=== PATIENT | female | born 1970 | race Caucasian/White ===

== ENCOUNTER 2016-04-29 16:44 | Emergency (ER) | payer OTHER ==
[2016-04-29 17:07] VITALS: BP 128/68; PULSE 85; RESP 18; TEMP 98.3
--- NOTE | 2016-04-29 17:22 | ED ---
General Adult HPI - General Chief complaint: Extremity Problem,Nontraumatic Stated complaint: Left Hand/Wrist Pain Time Seen by Provider: 04/29/16 17:10 Source: patient, RN notes reviewed Mode of arrival: ambulatory Limitations: no limitations - History of Present Illness Initial comments: Patient 45-year-old female who presents emergency room today with a chief complaint increased pain to the left wrist. Does admit to a history of carpal tunnel. 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 States she's been working for the past 7 weeks straight. States that she's had increased pain to the left wrist area was numbness tingling sensation. States consistent with her carpal tunnel that she's had in the past. States she's not using any medications at home. States she's had come the emergency room once in the past and was given a steroid Dosepak which didn't give her a lot of relief. Patient denies any complaints or associated symptoms. Patient denies any recent fever, chills, shortness of breath, chest pain, back pain, abdominal pain, nausea or vomiting, dysuria or hematuria, constipation or diarrhea, headaches or visual changes, or any other complaints. - Related Data Previous Rx's Medication Instructions Recorded Ibuprofen [Motrin] 600 mg PO Q6HR PRN #40 day 04/29/16 methylPREDNISolone Dose Pack 4 mg PO DIRECTED #21 package 04/29/16 [Medrol Dose Pack] Allergies Allergy/AdvReac Type Severity Reaction Status Date / Time ibuprofen [From Motrin] Allergy seizure Verified 04/29/16 17:06 aspirin AdvReac liver Verified 04/29/16 17:06 failure Review of Systems ROS Statement: Those systems with pertinent positive or pertinent negative responses have been documented in the HPI. ROS Other: All systems not noted in ROS Statement are negative. Past Medical History Past Medical History: Rheumatoid Arthritis (RA) Additional Past Medical History / Comment(s): carpel tunnel History of Any Multi-Drug Resistant Organisms: None Reported Past Surgical History: Section, Cholecystectomy, Orthopedic Surgery Past Psychological History: No Psychological Hx Reported Smoking Status: Never smoker Past Alcohol Use History: None Reported Past Drug Use History: None Reported General Exam - General Exam Comments Initial Comments: General: The patient is awake and alert, in no distress, and does not appear acutely ill. Neck: The neck is supple, there is no tenderness or JVD. Cardiovascular: There is a regular rate and rhythm. No murmur, rub or gallop is appreciated. Respiratory: Lungs are clear to auscultation, respirations are non-labored, breath sounds are equal. No wheezes, stridor, rales, or rhonchi. Musculoskeletal: Normal appearance left hand. Shows good range of motion. Does have pain with flexion and extension at the left wrist. Sensation intact pulses equal bilaterally 2+. Neurological: A&O x 3. CN II-XII intact, There are no obvious motor or sensory deficits. Coordination appears grossly intact. Speech is normal. Skin: Skin is warm and dry and no rashes or lesions are noted. Psychiatric: Normal mood and affect. Limitations: no limitations Course Vital Signs 04/29/16 17:04 Temperature 98.3 F Pulse Rate 85 Respiratory 18 Rate Blood Pressure 128/68 O2 Sat by Pulse 99 Oximetry Medical Decision Making - Medical Decision Making Patient advised follow-up with orthopedics. Will be given anti-inflammatories and steroid Dosepak. Disposition Clinical Impression: Carpal tunnel syndrome Disposition: HOME SELF-CARE Condition: Good Instructions: Paresthesia (ED) Additional Instructions: Please use medication as discussed. Please follow-up with orthopedics as discussed. Please return to emergency room if the symptoms increase or worsen or for any other concerns. Prescriptions: Ibuprofen [Motrin] 600 mg PO Q6HR PRN #40 day PRN Reason: Pain methylPREDNISolone Dose Pack [Medrol Dose Pack] 4 mg PO DIRECTED #21 package Referrals: None,Stated [Primary Care Provider] - 1-2 days Yamil Ramírez MD [STAFF PHYSICIAN] - 1-2 days Time of Disposition: 17:21
[2016-04-29] MEDS ORDERED: IBUPROFEN 600 MG STARTER PACK 4 TAB BTL PO STA (17:23)
== END 2016-04-29 17:45 | disposition home or self-care (01) ==
LOC: EC 16:44
DX: G56.02 Carpal tunnel syndrome, left upper limb (principal); M06.9 Rheumatoid arthritis, unspecified; Z88.6 Allergy status to analgesic agent; Z98.890 Other specified postprocedural states
CPT/HCPCS: 99283

== ENCOUNTER 2016-07-21 11:38 | Emergency (ER) | payer OTHER ==
[2016-07-21 11:57] VITALS: TEMP 98
--- NOTE | 2016-07-21 12:55 | XR ---
EXAMINATION TYPE: XR knee complete bilateral DATE OF EXAM: 07/21/2016 12:31 PM COMPARISON: 07/23/2013 HISTORY: 45-year-old female with lateral knee pain, history of prior surgery on both sides. TECHNIQUE: 3 views each knee FINDINGS: Supine imaging is limited for accurate assessment of joint space narrowing. This could be better perf ormed with weightbearing views. 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 An ovoid bone island is noted within the right femoral condyle. Extensor mechanisms are intact. Smal l knee joint effusion on the left is nonspecific. No acute fracture or dislocation. IMPRESSION: Left greater than right tricompartmental degenerative spurring. Assessment for joint space narrowing could be better performed with weightbearing views. A small left knee joint effusion is nonspecific a nd could be reactive. No acute osseous abnormality seen.
--- NOTE | 2016-07-21 13:25 | ED ---
General Adult HPI - General Chief complaint: Extremity Problem,Nontraumatic Stated complaint: PAIN BOTH LEGS, X 1 WEEK, SWELLING, TENDER KNEES Time Seen by Provider: 07/21/16 12:01 Source: patient, RN notes reviewed, old records reviewed Mode of arrival: wheelchair Limitations: no limitations - History of Present Illness Initial comments: This is a 45-year-old female to the ER today for evaluation of bilateral lower extremity edema. Patient has bilateral lower extremity pain and edema, anterior Edema and pain to the back of aspect of both knees. Patient has no prior history of similar complaints. No shortness of breath no chest pain. No trauma to either area. Patient has had left knee replacement left knee surgery. No again no recent travel history. No chest pain or shortness of breath. - Related Data Home Medications Medication Instructions Recorded Confirmed Ibuprofen/Diphenhydramine HCl 2 cap PO HS 07/21/16 07/21/16 [Advil Pm Liqui-Gels] Allergies Allergy/AdvReac Type Severity Reaction Status Date / Time aspirin AdvReac liver Verified 04/29/16 17:06 failure Review of Systems ROS Statement: Those systems with pertinent positive or pertinent negative responses have been documented in the HPI. ROS Other: All systems not noted in ROS Statement are negative. Past Medical History Past Medical History: Rheumatoid Arthritis (RA) Additional Past Medical History / Comment(s): carpel tunnel History of Any Multi-Drug Resistant Organisms: None Reported Past Surgical History: Section, Cholecystectomy, Orthopedic Surgery Past Psychological History: No Psychological Hx Reported Smoking Status: Never smoker Past Alcohol Use History: None Reported Past Drug Use History: None Reported General Exam Limitations: no limitations General appearance: alert, in no apparent distress Head exam: Present: atraumatic, normocephalic, normal inspection Eye exam: Present: normal appearance, PERRL, EOMI. Absent: scleral icterus, conjunctival injection, periorbital swelling ENT exam: Present: normal exam, mucous membranes moist Neck exam: Present: normal inspection. Absent: tenderness, meningismus, lymphadenopathy Respiratory exam: Present: normal lung sounds bilaterally. Absent: respiratory distress, wheezes, rales, rhonchi, stridor Cardiovascular Exam: Present: regular rate, normal rhythm, normal heart sounds. Absent: systolic murmur, diastolic murmur, rubs, gallop, clicks GI/Abdominal exam: Present: soft, normal bowel sounds. Absent: distended, tenderness, guarding, rebound, rigid Extremities exam: Present: normal inspection, full ROM, normal capillary refill. Absent: tenderness, pedal edema, joint swelling, calf tenderness Back exam: Present: normal inspection Neurological exam: Present: alert, oriented X3, CN II-XII intact Psychiatric exam: Present: normal affect, normal mood Skin exam: Present: warm, dry, intact, normal color. Absent: rash Course Vital Signs 07/21/16 11:53 Temperature 98 F Pulse Rate 74 Respiratory 20 Rate Blood Pressure 136/79 O2 Sat by Pulse 98 Oximetry - Reevaluation(s) Reevaluation #1: 07/21/16 14:08 Patient is in no acute distress, remains without shortness of breath or chest pain Medical Decision Making - Medical Decision Making 45 female here for evaluation of knee pain and leg pain. Patient has positive Saravia's cyst on the left. Patient will be given instructions and discharged home - Radiology Data Radiology results: report reviewed, image reviewed Disposition Clinical Impression: Saravia's cyst of knee Disposition: HOME SELF-CARE Condition: Good Referrals: None,Stated [Primary Care Provider] - 1-2 days
--- NOTE | 2016-07-21 13:34 | US ---
EXAMINATION TYPE: US venous doppler duplex LE BI DATE OF EXAM: 07/21/2016 1:13 PM COMPARISON: NONE CLINICAL HISTORY: Pain. Knee pain bilateral SIDE PERFORMED: Bilateral TECHNIQUE: The lower extremity deep venous system is examined utilizing real time linear array sonog chito with graded compression, doppler sonography and color-flow sonography. VESSELS IMAGED: External Iliac Vein (EIV) Common Femoral Vein Deep Femoral Vein Greater Saphenous Vein * Femoral Vein Popliteal Vein Small Saphenous Vein * Proximal Calf Veins (* superficial vessels) Right Leg: Appears negative for DVT Left Leg: Appears negative for DVT, 4.6cm fluid collection with posterior fossa anterior to vessels. IMPRESSION: 1. Bilateral lower extremity negative for deep venous thrombosis. 2. Popliteal fossa cyst on the left.
[2016-07-21 14:16] VITALS: BP 130/62; PULSE 80; RESP 16
== END 2016-07-21 14:15 | disposition home or self-care (01) ==
LOC: EC 11:38
DX: M71.22 Synovial cyst of popliteal space [Baker], left knee (principal); M25.561 Pain in right knee; R60.0 Localized edema; Z79.1 Long term (current) use of non-steroidal anti-inflammatories (NSAID); Z88.6 Allergy status to analgesic agent; Z96.652 Presence of left artificial knee joint
CPT/HCPCS: 93970; 99284

== ENCOUNTER 2019-07-25 12:58 | Emergency (ER) | payer OTHER ==
[2019-07-25 13:10] VITALS: TEMP 98.2
[2019-07-25] MEDS ORDERED: SODIUM CHLORIDE 0.9% 1,000 ML IV STA (13:30)
--- NOTE | 2019-07-25 13:57 | ED ---
General Adult HPI - General Chief complaint: Chest Pain Stated complaint: irregular labs/tests Time Seen by Provider: 07/25/19 13:17 Source: patient, RN notes reviewed, old records reviewed Mode of arrival: ambulatory Limitations: no limitations - History of Present Illness Initial comments: 48-year-old female patient past history of rheumatoid arthritis presents ED for chief complaint approximately 2 weeks of chest pain. Patient reports that she previously had Left lower posterior chest region. She reports that she called her primary care provider was initiated on doxycycline for possible pneumonia and that has resolved. Patient does report now however she has been having substernal chest pain for the last week. Reports that it is pressure. Denies any shortness of breath. Pt reports mild coughing. Denies any fevers. Denies any prior cardiac history. 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 Pt was previously tested for COVID by PCP 3 weeks ago and was negative. she declines this test today. Denies any other complaints. Systemic: Pt denies fatigue, fever/chills, rash. Pt denies weakness, night s weats, weight loss. Neuro: Pt denies headache, visual disturbances, syncope or pre-syncope. HEENT: Pt denies ocular discharge or irritation, otalgia, rhinorrhea, pharyngitis or notable lymphadenopathy. Cardiopulmonary: Pt denies SOB, heart palpitations, dyspnea on exertion. Abdominal/GI: Pt denies abdominal pain, n/v/d. : Pt denies dysuria, burning w/ urination, frequency/urgency. Denies new onset urinary or bowel incontinence. MSK: Pt denies myalgia, loss of strength or function in extremities. Neuro: Pt denies new onset weakness, paresthesias. - Related Data Home Medications Medication Instructions Recorded Confirmed Omeprazole [PriLOSEC] 20 mg PO AC-SUPPER 07/25/19 07/25/19 amLODIPine [Norvasc] 10 mg PO DAILY 07/25/19 07/25/19 Allergies Allergy/AdvReac Type Severity Reaction Status Date / Time aspirin AdvReac liver Verified 07/25/19 14:10 failure ibuprofen [From Motrin] AdvReac Nausea Verified 07/25/19 14:10 Review of Systems ROS Statement: Those systems with pertinent positive or pertinent negative responses have been documented in the HPI. ROS Other: All systems not noted in ROS Statement are negative. Past Medical History Past Medical History: Rheumatoid Arthritis (RA) Additional Past Medical History / Comment(s): carpel tunnel History of Any Multi-Drug Resistant Organisms: None Reported Past Surgical History: Section, Cholecystectomy, Orthopedic Surgery Past Psychological History: No Psychological Hx Reported Smoking Status: Never smoker Past Alcohol Use History: None Reported Past Drug Use History: None Reported General Exam - General Exam Comments Initial Comments: Constitutional: NAD, AOX3, Pt has pleasant affect. HEENT: NC/AT, trachea midline, neck supple, no lymphadenopathy. Posterior pharyn x non erythematous, without exudates. External ears appear normal, without discharge. Mucous membranes moist. Eyes PERRLA, EOM intact. There is no scleral icterus. No pallor noted. Cardiopulmonary: RRR, no murmurs, rubs or gallops, no JVD noted. Lungs CTAB in anterior and posterior langston. No peripheral edema. Abdominal exam: Abdomen soft and non-distended. Abdomen non-tender to palpation in all 4 quadrants. Bowel sounds active in LLQ. No hepatosplenomegaly. No ecchymosis Neuro: CN II-XII grossly intact. No nuchal rigidity. No raccon eyes, no sargent sign, no hemotympanum. No cervical spinal tenderness. MSK: No posterior calf tenderness bilaterally, homans sign negative bilaterally. Posterior tibialis and radial pulse +2 bilaterally. Sensation intact in upper and lower extremities. Full active ROM in upper and lower extremities, 5/5 stregnth. Limitations: no limitations Course Vital Signs 07/25/19 07/25/19 07/25/19 13:06 14:20 14:30 Temperature 98.2 F Pulse Rate 89 89 89 Respiratory 18 14 15 Rate Blood Pressure 138/84 110/72 110/72 O2 Sat by Pulse 99 97 99 Oximetry 07/25/19 07/25/19 07/25/19 14:46 14:50 15:20 Temperature Pulse Rate 90 97 101 H Respiratory 18 18 17 Rate Blood Pressure 137/88 137/88 123/91 O2 Sat by Pulse 99 96 96 Oximetry 07/25/19 07/25/19 07/25/19 15:30 15:40 15:50 Temperature Pulse Rate 102 H 95 Respiratory 16 16 Rate Blood Pressure 123/91 146/99 146/99 O2 Sat by Pulse 99 97 Oximetry 0407/25/19 07/25/19 16:00 16:10 16:20 Temperature Pulse Rate 92 Respiratory 17 16 Rate Blood Pressure 146/99 137/99 137/99 O2 Sat by Pulse 100 Oximetry Medical Decision Making - Medical Decision Making 48-year-old female patient past history of rheumatoid arthritis presents ED for chief complaint approximately 2 weeks of chest pain. Patient reports that she previously had Left lower posterior chest region. She reports that she called her primary care provider was initiated on doxycycline for possible pneumonia and that has resolved. Patient does report now however she has been having substernal chest pain for the last week. Reports that it is pressure. Denies any shortness of breath. Pt reports mild coughing. Denies any fevers. Denies any prior cardiac history. 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 Pt was previously tested for COVID by PCP 3 weeks ago and was negative. she declines this test today. Denies any other complaints. Patient vital signs are stable, afebrile. Physical exam didn't display acute pathology. Laboratory investigations are obtained, this displayed a mildly elevated d-dimer. Troponin negative. EKG is nonischemic. CTA was obtained. This displayed no evidence of pulmonary embolism. Mild diffuse bronchial wall thickening for possible bronchitis. Small hiatal hernia. Patient will be discharged for follow-up with primary care provider tomorrow and return to ER if condition worsens. Case discussed with Dr. Romeo. - Lab Data Result diagrams: 07/25/19 14:00 07/25/19 14:00 Lab Results 07/25/19 07/25/19 07/25/19 Range/Units 14:00 14:00 14:00 WBC 8.0 (3.8-10.6) k/uL RBC 4.79 (3.80-5.40) m/uL Hgb 15.2 (11.4-16.0) gm/dL Hct 45.4 (34.0-46.0) % MCV 94.8 (80.0-100.0) fL MCH 31.7 (25.0-35.0) pg MCHC 33.5 (31.0-37.0) g/dL RDW 13.0 (11.5-15.5) % Plt Count 295 (150-450) k/uL Neutrophils % 64 % Lymphocytes % 27 % Monocytes % 5 % Eosinophils % 1 % Basophils % 0 % Neutrophils # 5.1 (1.3-7.7) k/uL Lymphocytes # 2.2 (1.0-4.8) k/uL Monocytes # 0.4 (0-1.0) k/uL Eosinophils # 0.1 (0-0.7) k/uL Basophils # 0.0 (0-0.2) k/uL PT 9.3 (9.0-12.0) sec INR 0.9 (<1.2) APTT 23.3 (22.0-30.0) sec D-Dimer 0.77 H (<0.60) mg/L FEU Sodium 138 (137-145) mmol/L Potassium 4.2 (3.5-5.1) mmol/L Chloride 103 (98-107) mmol/L Carbon Dioxide 27 (22-30) mmol/L Anion Gap 8 mmol/L BUN 15 (7-17) mg/dL Creatinine 0.69 (0.52-1.04) mg/dL Est GFR (CKD-EPI)AfAm >90 (>60 ml/min/1.73 sqM) Est GFR (CKD-EPI)NonAf >90 (>60 ml/min/1.73 sqM) Glucose 90 (74-99) mg/dL Calcium 9.4 (8.4-10.2) mg/dL Magnesium 2.2 (1.6-2.3) mg/dL Total Bilirubin 1.4 H (0.2-1.3) mg/dL AST 18 (14-36) U/L ALT 15 (4-34) U/L Alkaline Phosphatase 101 (38-126) U/L Troponin I (0.000-0.034) ng/mL Total Protein 7.7 (6.3-8.2) g/dL Albumin 4.4 (3.5-5.0) g/dL Amylase 41 (30-110) U/L 07/25/19 Range/Units 14:00 WBC (3.8-10.6) k/uL RBC (3.80-5.40) m/uL Hgb (11.4-16.0) gm/dL Hct (34.0-46.0) % MCV (80.0-100.0) fL MCH (25.0-35.0) pg MCHC (31.0-37.0) g/dL RDW (11.5-15.5) % Plt Count (150-450) k/uL Neutrophils % % Lymphocytes % % Monocytes % % Eosinophils % % Basophils % % Neutrophils # (1.3-7.7) k/uL Lymphocytes # (1.0-4.8) k/uL Monocytes # (0-1.0) k/uL Eosinophils # (0-0.7) k/uL Basophils # (0-0.2) k/uL PT (9.0-12.0) sec INR (<1.2) APTT (22.0-30.0) sec D-Dimer (<0.60) mg/L FEU Sodium (137-145) mmol/L Potassium (3.5-5.1) mmol/L Chloride (98-107) mmol/L Carbon Dioxide (22-30) mmol/L Anion Gap mmol/L BUN (7-17) mg/dL Creatinine (0.52-1.04) mg/dL Est GFR (CKD-EPI)AfAm (>60 ml/min/1.73 sqM) Est GFR (CKD-EPI)NonAf (>60 ml/min/1.73 sqM) Glucose (74-99) mg/dL Calcium (8.4-10.2) mg/dL Magnesium (1.6-2.3) mg/dL Total Bilirubin (0.2-1.3) mg/dL AST (14-36) U/L ALT (4-34) U/L Alkaline Phosphatase (38-126) U/L Troponin I <0.012 (0.000-0.034) ng/mL Total Protein (6.3-8.2) g/dL Albumin (3.5-5.0) g/dL Amylase (30-110) U/L - EKG Data -: EKG Interpreted by Me (and Dr. romeo ) EKG Comments: Ventricular rate 92, ID interval 128, QRS 84, QT/QTC 342/422. Normal sinus rhythm, nonspecific ST-T wave abnormality. No concern for acute ischemia this time. Disposition Clinical Impression: Chest wall pain Disposition: HOME SELF-CARE Condition: Stable Instructions (If sedation given, give patient instructions): Chest Pain (ED), Costochondritis (ED) Additional Instructions: Follow-up with primary care provider tomorrow. Return to ER if condition worsens in any way. Is patient prescribed a controlled substance at d/c from ED?: No Referrals: Jeremy Corral MD [Primary Care Provider] - 1-2 days
[2019-07-25 14:25] LABS: Basophils % (A) 0 %; Eosinophils # (A) 0.1 k/uL (0-0.7); Eosinophils % (A) 1 %; HCT 45.4 % (34.0-46.0); HGB 15.2 gm/dL (11.4-16.0); Lymphocytes # (A) 2.2 k/uL (1.0-4.8); Lymphocytes % (A) 27 %; MCH 31.7 pg (25.0-35.0); MCHC 33.5 g/dL (31.0-37.0); MCV 94.8 fL (80.0-100.0); Mean Platelet Volume 8.1; Monocytes # (A) 0.4 k/uL (0-1.0); Monocytes % (A) 5 %; Neutrophils # (A) 5.1 k/uL (1.3-7.7); Neutrophils % (A) 64 %; Platelet Count 295 k/uL (150-450); RBC 4.79 m/uL (3.80-5.40)
[2019-07-25 14:36] LABS: ALT 15 U/L (4-34); AST 18 U/L (14-36); African American GFR (CKD) >90 (>60 ml/min/1.73 sqM); Albumin 4.4 g/dL (3.5-5.0); Alkaline Phosphatase 101 U/L (38-126); Amylase 41 U/L (30-110); Anion Gap 8 mmol/L; Blood Urea Nitrogen 15 mg/dL (7-17); Calcium 9.4 mg/dL (8.4-10.2); Carbon Dioxide 27 mmol/L (22-30); Chloride 103 mmol/L (98-107); Glucose 90 mg/dL (74-99); Magnesium 2.2 mg/dL (1.6-2.3); Non-African American GFR(CKD) >90 (>60 ml/min/1.73 sqM); Potassium 4.2 mmol/L (3.5-5.1); Sodium 138 mmol/L (137-145); Total Bilirubin 1.4 mg/dL (0.2-1.3); Total Protein 7.7 g/dL (6.3-8.2)
--- NOTE | 2019-07-25 14:39 | XR ---
EXAMINATION TYPE: XR chest 1V portable DATE OF EXAM: 07/25/2019 Comparison: None Clinical History: 48-year-old female chest pain Findings: Heart borderline enlarged. Aorta and pulmonary vasculature within normal limits. Some strandy atelect asis in the medial right lower lung. No consolidation or pleural effusion. Impression: Borderline heart size. No definite acute process.
[2019-07-25 14:42] LABS: INR 0.9 (<1.2); Partial Thromboplastin Time 23.3 sec (22.0-30.0); Prothrombin Time 9.3 sec (9.0-12.0)
[2019-07-25 15:16] LABS: D-Dimer 0.77 mg/L FEU (<0.60)
--- NOTE | 2019-07-25 16:00 | CT ---
EXAMINATION TYPE: CT chest angio for PE DATE OF EXAM: 07/25/2019 COMPARISON: Radiograph same day HISTORY: 48-year-old female Chest pain with difficulty breathing while laying down. TECHNIQUE: Contiguous axial scanning of the chest performed with IV Contrast, patient injected with 1 00 mL of Isovue 370. Coronal/sagittal MIP reconstructions performed. CT DLP: 547.4 mGycm Automated exposure control for dose reduction was used. FINDINGS: The heart is upper limits of normal in size. Mild fluid along a high pericardial recess anterior to the aortic arch. No flattening of the interventricular septum or reflux of contrast into the hepatic veins. Bovine configuration to the aortic arch. Satisfactory opacification of the pulmonary arterial system without evidence for pulmonary embolus. No thoracic lymphadenopathy by CT size criteria. Mild diffuse bronchial wall thickening. Minimal dependent atelectasis on the right. No consolidation or pleural effusion. Small hiatal hernia. Visualized upper abdomen otherwise shows cholecystectomy clips. Bones: Mild anterior endplate spondylosis mid thoracic spine. IMPRESSION: 1. NO EVIDENCE FOR PULMONARY EMBOLUS. 2. MILD DIFFUSE BRONCHIAL WALL THICKENING. CORRELATE FOR POSSIBLE BRONCHITIS OR ASTHMA. 3. SMALL HIATAL HERNIA.
[2019-07-25 17:15] VITALS: BP 129/88; PULSE 101; RESP 18
--- NOTE | 2019-07-26 08:32 | ED ---
Medical Decision Making - Medical Decision Making Discussed case with patient's primary care physician Dr. Corral who called to see how patient was doing. She states that she believed patient was experiencing pleurisy and actually requested patient had outpatient laboratory investigations and not present to emergency department however patient had confusion with lab draw and then came to the ER. Patient's symptoms are consistent with pleurisy/costochondritis. She reported her discomfort slightly pleuritic in nature. Appears to be musculoskeletal rather than cardiac. Patient advised to use Tylenol, [id number] antitussives. And will follow up with primary care provider tomorrow and return to ER if condition worsens. - Lab Data Result diagrams: 07/25/19 14:00 07/25/19 14:00 Lab Results 07/25/19 07/25/19 07/25/19 Range/Units 14:00 14:00 14:00 WBC 8.0 (3.8-10.6) k/uL RBC 4.79 (3.80-5.40) m/uL Hgb 15.2 (11.4-16.0) gm/dL Hct 45.4 (34.0-46.0) % MCV 94.8 (80.0-100.0) fL MCH 31.7 (25.0-35.0) pg MCHC 33.5 (31.0-37.0) g/dL RDW 13.0 (11.5-15.5) % Plt Count 295 (150-450) k/uL Neutrophils % 64 % Lymphocytes % 27 % Monocytes % 5 % Eosinophils % 1 % Basophils % 0 % Neutrophils # 5.1 (1.3-7.7) k/uL Lymphocytes # 2.2 (1.0-4.8) k/uL Monocytes # 0.4 (0-1.0) k/uL Eosinophils # 0.1 (0-0.7) k/uL Basophils # 0.0 (0-0.2) k/uL PT 9.3 (9.0-12.0) sec INR 0.9 (<1.2) APTT 23.3 (22.0-30.0) sec D-Dimer 0.77 H (<0.60) mg/L FEU Sodium 138 (137-145) mmol/L Potassium 4.2 (3.5-5.1) mmol/L Chloride 103 (98-107) mmol/L Carbon Dioxide 27 (22-30) mmol/L Anion Gap 8 mmol/L BUN 15 (7-17) mg/dL Creatinine 0.69 (0.52-1.04) mg/dL Est GFR (CKD-EPI)AfAm >90 (>60 ml/min/1.73 sqM) Est GFR (CKD-EPI)NonAf >90 (>60 ml/min/1.73 sqM) Glucose 90 (74-99) mg/dL Calcium 9.4 (8.4-10.2) mg/dL Magnesium 2.2 (1.6-2.3) mg/dL Total Bilirubin 1.4 H (0.2-1.3) mg/dL AST 18 (14-36) U/L ALT 15 (4-34) U/L Alkaline Phosphatase 101 (38-126) U/L Troponin I (0.000-0.034) ng/mL Total Protein 7.7 (6.3-8.2) g/dL Albumin 4.4 (3.5-5.0) g/dL Amylase 41 (30-110) U/L 07/25/19 Range/Units 14:00 WBC (3.8-10.6) k/uL RBC (3.80-5.40) m/uL Hgb (11.4-16.0) gm/dL Hct (34.0-46.0) % MCV (80.0-100.0) fL MCH (25.0-35.0) pg MCHC (31.0-37.0) g/dL RDW (11.5-15.5) % Plt Count (150-450) k/uL Neutrophils % % Lymphocytes % % Monocytes % % Eosinophils % % Basophils % % Neutrophils # (1.3-7.7) k/uL Lymphocytes # (1.0-4.8) k/uL Monocytes # (0-1.0) k/uL Eosinophils # (0-0.7) k/uL Basophils # (0-0.2) k/uL PT (9.0-12.0) sec INR (<1.2) APTT (22.0-30.0) sec D-Dimer (<0.60) mg/L FEU Sodium (137-145) mmol/L Potassium (3.5-5.1) mmol/L Chloride (98-107) mmol/L Carbon Dioxide (22-30) mmol/L Anion Gap mmol/L BUN (7-17) mg/dL Creatinine (0.52-1.04) mg/dL Est GFR (CKD-EPI)AfAm (>60 ml/min/1.73 sqM) Est GFR (CKD-EPI)NonAf (>60 ml/min/1.73 sqM) Glucose (74-99) mg/dL Calcium (8.4-10.2) mg/dL Magnesium (1.6-2.3) mg/dL Total Bilirubin (0.2-1.3) mg/dL AST (14-36) U/L ALT (4-34) U/L Alkaline Phosphatase (38-126) U/L Troponin I <0.012 (0.000-0.034) ng/mL Total Protein (6.3-8.2) g/dL Albumin (3.5-5.0) g/dL Amylase (30-110) U/L Disposition Clinical Impression: Chest wall pain Disposition: HOME SELF-CARE Condition: Stable Instructions (If sedation given, give patient instructions): Chest Pain (ED), Costochondritis (ED) Additional Instructions: Follow-up with primary care provider tomorrow. Return to ER if condition worsens in any way. Is patient prescribed a controlled substance at d/c from ED?: No Referrals: Jeremy Corral MD [Primary Care Provider] - 1-2 days
== END 2019-07-25 17:33 | disposition home or self-care (01) ==
LOC: EC 12:58
DX: R07.89 Other chest pain (principal); K44.9 Diaphragmatic hernia without obstruction or gangrene; Z79.899 Other long term (current) drug therapy; Z88.6 Allergy status to analgesic agent
CPT/HCPCS: 36415; 93005; 85379; 80053; 82150; 83735; 84484; 85025; 85610; 85730; 71045; 71275; 99285; 96360; 96361 ×2; Q9967

== ENCOUNTER 2020-02-25 10:52 | Emergency (ER) | payer OTHER ==
[2020-02-25 11:00] VITALS: RESP 18; TEMP 98.4
[2020-02-25] MEDS ORDERED: dexAMETHasone 2 MG TAB PO STA (11:14)
--- NOTE | 2020-02-25 11:41 | ED ---
General Adult HPI - General Chief complaint: Shortness of Breath Stated complaint: MONICA Time Seen by Provider: 02/25/20 11:00 Source: patient Mode of arrival: wheelchair Limitations: no limitations - History of Present Illness Initial comments: 49-year-old female presenting today for positive Covid exposure and cough, SOB, chest discomfort. Patient states that she was exposed to Covid by her mother and daughter. She states that she's been developing cough congestion shortness of breath over the past few days. She states she is discomfort in the right side of the chest at times especially with deep inspiration. She denies hemoptysis leg swelling chest pressure nausea vomiting diarrhea or abdominal pain. Patient denies jaw or arm pain. Pt appears well on arrival, no distress--she is not hypoxic. - Related Data Home Medications Medication Instructions Recorded Confirmed Loratadine [Claritin] 10 mg PO DAILY 02/25/20 02/25/20 Omeprazole 40 mg PO DAILY 02/25/20 02/25/20 hydroCHLOROthiazide [Hydrodiuril] 12.5 mg PO DAILY 02/25/20 02/25/20 Previous Rx's Medication Instructions Recorded Azithromycin [Zithromax Z-pack (6 0 mg PO DIRECTED #6 tab 02/25/20 tabs)] predniSONE 50 mg PO DAILY 4 Days #4 tab 02/25/20 Allergies Allergy/AdvReac Type Severity Reaction Status Date / Time aspirin AdvReac liver Verified 02/25/20 11:19 failure ibuprofen [From Motrin] AdvReac Nausea Verified 02/25/20 11:19 Review of Systems ROS Statement: Those systems with pertinent positive or pertinent negative responses have been documented in the HPI. ROS Other: All systems not noted in ROS Statement are negative. Past Medical History Past Medical History: Rheumatoid Arthritis (RA) Additional Past Medical History / Comment(s): carpel tunnel History of Any Multi-Drug Resistant Organisms: None Reported Past Surgical History: Section, Cholecystectomy, Orthopedic Surgery Past Psychological History: No Psychological Hx Reported Smoking Status: Never smoker Past Alcohol Use History: None Reported Past Drug Use History: None Reported General Exam - General Exam Comments Initial Comments: General: The patient is awake and alert, in no distress, and does not appear acutely ill. Eye: Pupils are equal, round and reactive to light, extra-ocular movements are intact. No nystagmus. There is normal conjunctiva bilaterally. No signs of icterus. Ears, nose, mouth and throat: There are moist mucous membranes and no oral lesions. Neck: The neck is supple, there is no tenderness or JVD. Cardiovascular: There is a regular rate and rhythm. No murmur, rub or gallop is appreciated. Respiratory: Lungs are clear to auscultation, respirations are non-labored, breath sounds are equal. No wheezes, stridor, rales, or rhonchi. Gastrointestinal: Soft, non-distended, non-tender abdomen without masses or organomegaly noted. There is no rebound or guarding present. Musculoskeletal: Normal ROM, no tenderness. Strength 5/5. Sensation intact. Pulses equal bilaterally 2+. Neurological: A&O x 3. CN II-XII intact, There are no obvious motor or sensory deficits. Coordination appears grossly intact. Speech is normal. Skin: Skin is warm and dry and no rashes or lesions are noted. No lower extremity edema calf swelling or pain Psychiatric: Cooperative, appropriate mood & affect, normal judgment. Limitations: no limitations Course Vital Signs 02/25/20 02/25/20 02/25/20 10:57 11:36 12:00 Temperature 98.4 F Pulse Rate 78 81 Respiratory 18 18 18 Rate Blood Pressure 167/110 136/84 O2 Sat by Pulse 100 99 Oximetry 02/25/20 02/25/20 13:21 13:42 Temperature 98.4 F Pulse Rate 88 88 Respiratory 18 18 Rate Blood Pressure 141/84 141/84 O2 Sat by Pulse 99 99 Oximetry Medical Decision Making - Medical Decision Making Nontoxic for [place] female presenting for cold exposure states she believes she has symptoms of cold with cough shortness of breath at times right-sided chest pain with inspiration she state. Pain resolved after steroid. EKG no acute changes patient is less than age 50 with heart rate less than 100 she is greater than 95% on room air she has no unilateral leg swelling denies hemoptysis denies recent surgery or trauma denies immobilization history of DVT or pulmonary embolism and denies any exogenous hormone use. Patient is perc (-). covid test (-). Patient cxr developing infiltrate. labs stable. pt will be discharged with pcp f/uArlene turner agreeable to care plan and discharge as well as my attending provider - Lab Data Result diagrams: 02/25/20 12:55 02/25/20 12:55 Lab Results 02/25/20 02/25/20 02/25/20 Range/Units 12:00 12:55 12:55 WBC 6.1 (3.8-10.6) k/uL RBC 4.81 (3.80-5.40) m/uL Hgb 15.3 (11.4-16.0) gm/dL Hct 44.8 (34.0-46.0) % MCV 93.1 (80.0-100.0) fL MCH 31.7 (25.0-35.0) pg MCHC 34.1 (31.0-37.0) g/dL RDW 13.1 (11.5-15.5) % Plt Count 253 (150-450) k/uL MPV 8.2 Neutrophils % 64 % Lymphocytes % 25 % Monocytes % 6 % Eosinophils % 2 % Basophils % 1 % Neutrophils # 3.9 (1.3-7.7) k/uL Lymphocytes # 1.5 (1.0-4.8) k/uL Monocytes # 0.4 (0-1.0) k/uL Eosinophils # 0.1 (0-0.7) k/uL Basophils # 0.1 (0-0.2) k/uL Sodium 140 (137-145) mmol/L Potassium 3.8 (3.5-5.1) mmol/L Chloride 105 (98-107) mmol/L Carbon Dioxide 30 (22-30) mmol/L Anion Gap 5 mmol/L BUN 11 (7-17) mg/dL Creatinine 0.71 (0.52-1.04) mg/dL Est GFR (CKD-EPI)AfAm >90 (>60 ml/min/1.73 sqM) Est GFR (CKD-EPI)NonAf >90 (>60 ml/min/1.73 sqM) Glucose 95 (74-99) mg/dL Calcium 9.1 (8.4-10.2) mg/dL Total Bilirubin 1.3 (0.2-1.3) mg/dL AST 24 (14-36) U/L ALT 25 (4-34) U/L Alkaline Phosphatase 85 (38-126) U/L Troponin I (0.000-0.034) ng/mL Total Protein 7.1 (6.3-8.2) g/dL Albumin 4.0 (3.5-5.0) g/dL Coronavirus (PCR) Not Detected (Not Detectd) 02/25/20 Range/Units 12:55 WBC (3.8-10.6) k/uL RBC (3.80-5.40) m/uL Hgb (11.4-16.0) gm/dL Hct (34.0-46.0) % MCV (80.0-100.0) fL MCH (25.0-35.0) pg MCHC (31.0-37.0) g/dL RDW (11.5-15.5) % Plt Count (150-450) k/uL MPV Neutrophils % % Lymphocytes % % Monocytes % % Eosinophils % % Basophils % % Neutrophils # (1.3-7.7) k/uL Lymphocytes # (1.0-4.8) k/uL Monocytes # (0-1.0) k/uL Eosinophils # (0-0.7) k/uL Basophils # (0-0.2) k/uL Sodium (137-145) mmol/L Potassium (3.5-5.1) mmol/L Chloride (98-107) mmol/L Carbon Dioxide (22-30) mmol/L Anion Gap mmol/L BUN (7-17) mg/dL Creatinine (0.52-1.04) mg/dL Est GFR (CKD-EPI)AfAm (>60 ml/min/1.73 sqM) Est GFR (CKD-EPI)NonAf (>60 ml/min/1.73 sqM) Glucose (74-99) mg/dL Calcium (8.4-10.2) mg/dL Total Bilirubin (0.2-1.3) mg/dL AST (14-36) U/L ALT (4-34) U/L Alkaline Phosphatase (38-126) U/L Troponin I <0.012 (0.000-0.034) ng/mL Total Protein (6.3-8.2) g/dL Albumin (3.5-5.0) g/dL Coronavirus (PCR) (Not Detectd) Disposition Clinical Impression: URI (upper respiratory infection), Lung infiltrate Disposition: HOME SELF-CARE Condition: Good Instructions (If sedation given, give patient instructions): Viral Pneumonia (ED) Additional Instructions: Please use medication as discussed. Please follow-up with family doctor in the next 2 days.. Please return to emergency room if the symptoms increase or worsen or for any other concerns. Prescriptions: predniSONE 50 mg PO DAILY 4 Days #4 tab Azithromycin [Zithromax Z-pack (6 tabs)] 0 mg PO DIRECTED #6 tab Is patient prescribed a controlled substance at d/c from ED?: No Referrals: Jeremy Corral MD [Primary Care Provider] - 1-2 days Time of Disposition: 13:25
[2020-02-25] MEDS ORDERED: DEXAMETHASONE SOD PHOSPHATE 10 MG/ML 1 ML VIAL IV STA (12:10)
--- NOTE | 2020-02-25 12:25 | XR ---
EXAMINATION TYPE: XR chest 2V DATE OF EXAM: 02/25/2020 COMPARISON: 07/25/2019 HISTORY: 49-year-old female with cough TECHNIQUE: PA and lateral views FINDINGS: Heart normal size. Aorta and pulmonary vasculature within normal limits. Sagittal increasing hazy den sity at the right lower lung. No pleural effusion. Cholecystectomy clips. IMPRESSION: Either subtle patchy atelectasis or early developing infiltrate at the right lower lung. Correlate wi th patient's symptoms. Follow-up can be performed.
[2020-02-25 13:08] LABS: Basophils # (A) 0.1 k/uL (0-0.2); Basophils % (A) 1 %; Eosinophils # (A) 0.1 k/uL (0-0.7); Eosinophils % (A) 2 %; HCT 44.8 % (34.0-46.0); HGB 15.3 gm/dL (11.4-16.0); Lymphocytes # (A) 1.5 k/uL (1.0-4.8); Lymphocytes % (A) 25 %; MCH 31.7 pg (25.0-35.0); MCHC 34.1 g/dL (31.0-37.0); MCV 93.1 fL (80.0-100.0); Mean Platelet Volume 8.2; Monocytes # (A) 0.4 k/uL (0-1.0); Monocytes % (A) 6 %; Neutrophils # (A) 3.9 k/uL (1.3-7.7); Neutrophils % (A) 64 %; Platelet Count 253 k/uL (150-450); RBC 4.81 m/uL (3.80-5.40); RDW 13.1 % (11.5-15.5); WBC 6.1 k/uL (3.8-10.6)
[2020-02-25 13:21] LABS: ALT 25 U/L (4-34); AST 24 U/L (14-36); African American GFR (CKD) >90 (>60 ml/min/1.73 sqM); Alkaline Phosphatase 85 U/L (38-126); Anion Gap 5 mmol/L; Blood Urea Nitrogen 11 mg/dL (7-17); Calcium 9.1 mg/dL (8.4-10.2); Carbon Dioxide 30 mmol/L (22-30); Chloride 105 mmol/L (98-107); Glucose 95 mg/dL (74-99); Non-African American GFR(CKD) >90 (>60 ml/min/1.73 sqM); Potassium 3.8 mmol/L (3.5-5.1); Sodium 140 mmol/L (137-145); Total Bilirubin 1.3 mg/dL (0.2-1.3); Total Protein 7.1 g/dL (6.3-8.2)
[2020-02-25 13:22] VITALS: BP 141/84; PULSE 88
== END 2020-02-25 13:51 | disposition home or self-care (01) ==
LOC: EC 10:52
DX: J06.9 Acute upper respiratory infection, unspecified (principal); R91.8 Other nonspecific abnormal finding of lung field; Z79.899 Other long term (current) drug therapy; Z88.6 Allergy status to analgesic agent; Z20.828 Contact with and (suspected) exposure to other viral communicable diseases
CPT/HCPCS: 36415; 93005; 80053; 84484; 85025; 87635; 71046; 99285; 96374; J1100

== ENCOUNTER 2020-04-16 04:56 | Emergency (ER) | payer OTHER ==
[2020-04-16 06:40] VITALS: RESP 18
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
--- NOTE | 2020-04-16 07:32 | US ---
EXAMINATION TYPE: US venous doppler duplex LE RT DATE OF EXAM: 04/16/2020 6:36 AM COMPARISON: Bilateral venous ultrasound lower extremity July 21, 2016 CLINICAL HISTORY: pain, popliteal fossa, R/O DVT. Pain SIDE PERFORMED: Right TECHNIQUE: The lower extremity deep venous system is examined utilizing real time linear array sonog chito with graded compression, doppler sonography and color-flow sonography. VESSELS IMAGED: Common Femoral Vein Deep Femoral Vein Greater Saphenous Vein * Femoral Vein Popliteal Vein Small Saphenous Vein * Proximal Calf Veins (* superficial vessels) Right Leg: Negative for DVT Grayscale, color doppler, spectral doppler imaging performed of the deep veins of the right lower ext remity. There is normal flow, compressibility, vascular waveforms. IMPRESSION: No ultrasound evidence for acute DVT in the right lower extremity.
[2020-04-16 09:17] VITALS: BP 132/74; PULSE 84; TEMP 97.8
== END 2020-04-16 09:17 | disposition home or self-care (01) ==
LOC: EC 04:56
DX: M79.604 Pain in right leg (principal); M79.89 Other specified soft tissue disorders; I10 Essential (primary) hypertension; M06.9 Rheumatoid arthritis, unspecified; Z79.899 Other long term (current) drug therapy; Z86.718 Personal history of other venous thrombosis and embolism; Z88.6 Allergy status to analgesic agent; Z90.49 Acquired absence of other specified parts of digestive tract
CPT/HCPCS: 36415; 85379; 99284

== ENCOUNTER 2020-07-05 13:20 | Emergency (ER) | payer OTHER ==
[2020-07-05 13:45] VITALS: RESP 18
--- NOTE | 2020-07-05 15:33 | ED ---
URI HPI - General Chief Complaint: Upper Respiratory Infection Stated Complaint: Covid exposure, SOB Time Seen by Provider: 07/05/20 13:35 Source: patient, RN notes reviewed Mode of arrival: ambulatory Limitations: no limitations - History of Present Illness Initial Comments: 49-year-old female presents emergency Department chief complaint of cough cold- like symptoms. Patient has been sick for last few days. Patient states she has no significant chest pain or shortness of breath no leg pain like swelling mild GI symptoms. Patient states that her mom was recently diagnosed with covid Patient states that she was concerned and came in for testing. - Related Data Home Medications Medication Instructions Recorded Confirmed Omeprazole 40 mg PO DAILY 02/25/20 04/16/20 Nystatin 100,000 Unit/gm Powd 1 applic TOPICAL BID 04/16/20 04/16/20 [Mycostatin Powder] hydroCHLOROthiazide [Hydrodiuril] 25 mg PO DAILY 04/16/20 04/16/20 Previous Rx's Medication Instructions Recorded Orphenadrine [Norflex] 100 mg PO Q12H #7 tablet.er 04/16/20 Allergies Allergy/AdvReac Type Severity Reaction Status Date / Time aspirin AdvReac liver Verified 07/05/20 13:45 failure ibuprofen [From Motrin] AdvReac Nausea Verified 07/05/20 13:45 Review of Systems ROS Statement: Those systems with pertinent positive or pertinent negative responses have been documented in the HPI. ROS Other: All systems not noted in ROS Statement are negative. Past Medical History Past Medical History: Hypertension, Rheumatoid Arthritis (RA) Additional Past Medical History / Comment(s): carpel tunnel History of Any Multi-Drug Resistant Organisms: None Reported Past Surgical History: Section, Cholecystectomy, Orthopedic Surgery Past Psychological History: No Psychological Hx Reported Smoking Status: Never smoker Past Alcohol Use History: None Reported Past Drug Use History: None Reported General Exam Limitations: no limitations General appearance: alert, in no apparent distress Head exam: Present: atraumatic, normocephalic, normal inspection Eye exam: Present: normal appearance, PERRL, EOMI. Absent: scleral icterus, conjunctival injection, periorbital swelling ENT exam: Present: normal exam, mucous membranes moist Neck exam: Present: normal inspection. Absent: tenderness, meningismus, lymphadenopathy Respiratory exam: Present: normal lung sounds bilaterally. Absent: respiratory distress, wheezes, rales, rhonchi, stridor Cardiovascular Exam: Present: regular rate, normal rhythm, normal heart sounds. Absent: systolic murmur, diastolic murmur, rubs, gallop, clicks GI/Abdominal exam: Present: soft, normal bowel sounds. Absent: distended, tenderness, guarding, rebound, rigid Course Vital Signs 07/05/20 13:41 Temperature 99.2 F Pulse Rate 90 Respiratory 18 Rate Blood Pressure 161/89 O2 Sat by Pulse 98 Oximetry Medical Decision Making - Medical Decision Making Patient does qualify for monoclonal antibodies was given infusional be discharged in stable condition. Close follow-up return parameters were discussed. - Lab Data Lab Results 07/05/20 Range/Units 13:47 Coronavirus (PCR) Detected A (Not Detectd) Disposition Clinical Impression: COVID-19 Disposition: HOME SELF-CARE Condition: Stable Instructions (If sedation given, give patient instructions): Coronavirus Disease 2019 (COVID-19) Additional Instructions: Please return to the Emergency Department if symptoms worsen or any other concerns. Is patient prescribed a controlled substance at d/c from ED?: No Referrals: Jeremy Corral MD [Primary Care Provider] - 1-2 days Time of Disposition: 15:34
[2020-07-05] MEDS ORDERED: BAMLANIVIMAB (EUA) 700 MG, ETESEVIMAB (EUA) 1,400 MG in SODIUM CHLORIDE 0.9% 50 ML IVPB ONE (15:45)
[2020-07-05 17:55] VITALS: BP 139/70; PULSE 80; TEMP 98.8
== END 2020-07-05 17:55 | disposition home or self-care (01) ==
LOC: EC 13:20
DX: U07.1 COVID-19 (principal); I10 Essential (primary) hypertension; M06.9 Rheumatoid arthritis, unspecified; Z79.899 Other long term (current) drug therapy
CPT/HCPCS: 87635; 99284; 96365; Q0245

== ENCOUNTER 2020-07-16 01:45 | Emergency (ER) | payer OTHER ==
--- NOTE | 2020-07-16 02:42 | ED ---
General Adult HPI - General Chief complaint: Shortness of Breath Stated complaint: MONICA Time Seen by Provider: 07/16/20 02:21 Source: patient Mode of arrival: wheelchair Limitations: no limitations - History of Present Illness Initial comments: Patient is a 49-year-old female with history of hypertension, presenting to the emergency Department with complaints of feeling anxious and mildly short of breath after she started the antibiotic today. Patient states she called her doctor today because she continues to have some mild "right lower lung pain." Her doctor then started her on Levaquin. Patient took 1 dose this evening and then tried to go to sleep over she felt very anxious and was not able to fall asleep. She states she continues to feel very anxious associated to come into the ER. She denies any short of breath, no chest pains other than this right sided lung pain. She denies any fevers, no nausea or vomiting, no abdominal pain. She states she took Benadryl this evening to help her sleep as well which does not seem to be helping. She has no further complaints at this time. Upon arrival to the ER, her vital signs are stable. - Related Data Home Medications Medication Instructions Recorded Confirmed Omeprazole 40 mg PO DAILY 02/25/20 04/16/20 Nystatin 100,000 Unit/gm Powd 1 applic TOPICAL BID 04/16/20 04/16/20 [Mycostatin Powder] hydroCHLOROthiazide [Hydrodiuril] 25 mg PO DAILY 04/16/20 04/16/20 Previous Rx's Medication Instructions Recorded Orphenadrine [Norflex] 100 mg PO Q12H #7 tablet.er 04/16/20 Allergies Allergy/AdvReac Type Severity Reaction Status Date / Time aspirin AdvReac liver Verified 07/16/20 01:51 failure ibuprofen [From Motrin] AdvReac Nausea Verified 07/16/20 01:51 Review of Systems ROS Statement: Those systems with pertinent positive or pertinent negative responses have been documented in the HPI. ROS Other: All systems not noted in ROS Statement are negative. Past Medical History Past Medical History: Hypertension, Rheumatoid Arthritis (RA) Additional Past Medical History / Comment(s): carpel tunnel. covid 10 07/05/20 History of Any Multi-Drug Resistant Organisms: None Reported Past Surgical History: Section, Cholecystectomy, Orthopedic Surgery Past Psychological History: No Psychological Hx Reported Smoking Status: Never smoker Past Alcohol Use History: None Reported Past Drug Use History: None Reported General Exam - General Exam Comments Initial Comments: GENERAL: Patient is well-developed and well-nourished. Patient is nontoxic and in no acute distress, is anxious. HEAD: Atraumatic, normocephalic. EYES: Pupils equal round and reactive to light, extraocular movements intact, sclera anicteric, conjunctiva are normal. Eyelids were unremarkable. ENT: TMs normal, nares patent, oropharynx clear without exudates. Moist mucous me mbranes. NECK: Normal range of motion, supple without lymphadenopathy or JVD. LUNGS: Unlabored respirations. Breath sounds clear to auscultation bilaterally and equal. No wheezes rales or rhonchi. HEART: Regular rate and rhythm without murmurs, rubs or gallops. ABDOMEN: Soft, nontender, normoactive bowel sounds. No guarding, no rebound. No masses appreciated. : Deferred MUSCULOSKELETAL: Normal extremities with adequate strength and normal range of motion, no pitting or edema. No clubbing or cyanosis. NEUROLOGICAL: Patient is alert and oriented x 3. Motor and sensory are also intact. Cranial nerves II through XII grossly intact. Symmetrical smile. Normal speech, normal gait. PSYCH: Normal mood, normal affect. SKIN: Warm, Dry, normal turgor, no rashes or lesions noted. Limitations: no limitations Course Vital Signs 07/16/20 01:47 Temperature 98.0 F Pulse Rate 99 Respiratory 24 Rate Blood Pressure 165/90 O2 Sat by Pulse 100 Oximetry Medical Decision Making - Medical Decision Making Patient is a 49-year-old female here presenting with anxiety, some mild shortness of breath after starting on Levaquin this evening. Her vital signs are stable. Unremarkable. She did test positive for Covid on 07/05/2020. Chest x-ray shows mild opacities in the lower lungs, might represent atelectasis, inflammatory processes is not entirely excluded. Patient will be given a by mouth Ativan to go home with for anxiety. I did recommend to not continue with Levaquin as she does not have a pneumonia, no other source of infection at this time. She can follow up with her primary care physician. She is in agreement with this plan of care. Return parameters were discussed with the patient and she verbalized understanding. Case discussed with Dr. Bliss. Disposition Clinical Impression: COVID-19, Anxiety Disposition: HOME SELF-CARE Condition: Stable Instructions (If sedation given, give patient instructions): Coronavirus Disease 2019 (COVID-19) Additional Instructions: Please return to the Emergency Department if symptoms worsen or any other concerns. Continue take Tylenol or Motrin for any body aches or headache. Follow-up with your primary care physician. Is patient prescribed a controlled substance at d/c from ED?: No Referrals: Jeremy Corral MD [Primary Care Provider] - 1-2 days Time of Disposition: 03:06
--- NOTE | 2020-07-16 03:00 | XR ---
EXAM: XR Chest, 1 View CLINICAL HISTORY: ITS.REASON XR Reason: covid on 07/05, pain TECHNIQUE: Frontal view of the chest. COMPARISON: Chest radiograph on 02/25/2020 FINDINGS: Hardware: None. Lungs/pleura: Mildly low lung volumes. Mild opacities in the lower lungs may represent atelectasis. Infectious/inflammatory process is not excluded. No pleural effusion or pneumothorax. Heart/mediastinum: Mild enlargement of the cardiac silhouette may be accentuated by low lung volumes. Soft tissues: Unremarkable. Bones: No acute fracture. Mild degenerative changes of the acromio clavicular joints. Upper abdomen: Normal. IMPRESSION: Mildly low lung volumes. Mild opacities in the lower lungs may represent atelectasis. Infectious/inflammatory process is not excluded.
[2020-07-16] MEDS ORDERED: LORazepam 1 MG TAB PO STA (03:06)
[2020-07-16 03:22] VITALS: BP 141/81; PULSE 88; RESP 16; TEMP 97.9
== END 2020-07-16 03:15 | disposition home or self-care (01) ==
LOC: EC 01:45
DX: U07.1 COVID-19 (principal); F41.9 Anxiety disorder, unspecified; I10 Essential (primary) hypertension
CPT/HCPCS: 71045; 99284

== ENCOUNTER 2020-08-24 11:16 | Emergency (ER) | payer OTHER ==
[2020-08-24 11:34] VITALS: RESP 18; TEMP 98
[2020-08-24] MEDS ORDERED: HYDROmorphone 0.5 MG/0.5 ML SYRINGE IVP STA (11:49)
--- NOTE | 2020-08-24 12:15 | ED ---
Abdominal Pain HPI - General Chief Complaint: Abdominal Pain Stated Complaint: kidney stones Time Seen by Provider: 08/24/20 11:34 Source: patient Mode of arrival: ambulatory Limitations: no limitations - History of Present Illness Initial Comments: 50-year-old female presenting today for chief complaint of left-sided flank pain. Patient states she had an achy left flank and left back pain that increased with movement. Patient states that it went away after it started yesterday but was back this AM and made her feel nauseated. denies vomiting, fevers, urinary symptoms, hematuria. patient denies falls/trauma, lower pelvic pain, vaginal bleeidng/discharge, upper abdominal pain, chest pain, dyspnea. Patient denies pain with deep breath. no additional complaints. - Related Data Home Medications Medication Instructions Recorded Confirmed Omeprazole 40 mg PO DAILY 02/25/20 04/16/20 Nystatin 100,000 Unit/gm Powd 1 applic TOPICAL BID 04/16/20 04/16/20 [Mycostatin Powder] hydroCHLOROthiazide [Hydrodiuril] 25 mg PO DAILY 04/16/20 04/16/20 Previous Rx's Medication Instructions Recorded Orphenadrine [Norflex] 100 mg PO Q12H #7 tablet.er 04/16/20 Cephalexin [Keflex] 500 mg PO Q12HR 5 Days #10 cap 08/24/20 Allergies Allergy/AdvReac Type Severity Reaction Status Date / Time aspirin AdvReac liver Verified 08/24/20 11:33 failure ibuprofen [From Motrin] AdvReac Nausea Verified 08/24/20 11:33 Review of Systems ROS Statement: Those systems with pertinent positive or pertinent negative responses have been documented in the HPI. ROS Other: All systems not noted in ROS Statement are negative. Past Medical History Past Medical History: Hypertension, Rheumatoid Arthritis (RA) Additional Past Medical History / Comment(s): carpel tunnel. covid 10 07/05/20 History of Any Multi-Drug Resistant Organisms: None Reported Past Surgical History: Section, Cholecystectomy, Orthopedic Surgery Past Psychological History: No Psychological Hx Reported Smoking Status: Never smoker Past Alcohol Use History: None Reported Past Drug Use History: None Reported General Exam - General Exam Comments Initial Comments: General: The patient is awake and alert, in no distress Eye: +3 mm pupils are equal, round and reactive to light, extra-ocular movemen ts are intact. No nystagmus. There is normal conjunctiva bilaterally. No signs of icterus. Ears, nose, mouth and throat: There are moist mucous membranes and no oral les ions. Neck: The neck is supple, there is no tenderness or JVD. Cardiovascular: There is a regular rate and rhythm. No murmur, rub or gallop is appreciated. Respiratory: Lungs are clear to auscultation, respirations are non-labored, breath sounds are equal. No wheezes, stridor, rales, or rhonchi. Gastrointestinal: Soft, non-distended, mild left mid abdominal tenderness, mild- abdomen without masses or organomegaly noted. There is no rebound or guarding present. Musculoskeletal: Normal ROM, no tenderness. Strength 5/5. Sensation intact. Radial and DP pulses equal bilaterally 2+. Neurological: A&O x 3. CN II-XII intact grossly, There are no obvious motor or sensory deficits. Coordination appears grossly intact. Speech is normal. Skin: Skin is warm and dry and no rashes or lesions are noted. Psychiatric: Cooperative, appropriate mood & affect, normal judgment. Limitations: no limitations Course Vital Signs 08/24/20 08/24/20 11:29 12:54 Temperature 98.0 F Pulse Rate 72 88 Respiratory 18 18 Rate Blood Pressure 143/77 140/77 O2 Sat by Pulse 99 97 Oximetry Medical Decision Making - Medical Decision Making Labs stable. CT renal cysts, possible pelvic mass. no pelvic pain on exam. recommend outpatient US/OBGYN evaluation to ensure no malignant/cancerous process-pt understands importance of this-verbalized understanding. pt otherwise has no findings on CT that could attribute to pain. pt appears well wihtout pain on reevaluation, ddx includes back strain, passed stone. patient will be discharged with pcp, urology and field support engineer f/u. patient agreeable to this care plan and discharge as well as attending provider Dr Hinton. - Lab Data Result diagrams: 08/24/20 12:04 08/24/20 12:04 Lab Results 08/24/20 08/24/20 08/24/20 Range/Units 12:04 12:04 12:04 WBC 7.8 (3.8-10.6) k/uL RBC 4.59 (3.80-5.40) m/uL Hgb 15.3 (11.4-16.0) gm/dL Hct 42.9 (34.0-46.0) % MCV 93.6 (80.0-100.0) fL MCH 33.4 (25.0-35.0) pg MCHC 35.7 (31.0-37.0) g/dL RDW 12.4 (11.5-15.5) % Plt Count 264 (150-450) k/uL MPV 8.2 Neutrophils % 59 % Lymphocytes % 31 % Monocytes % 6 % Eosinophils % 2 % Basophils % 1 % Neutrophils # 4.6 (1.3-7.7) k/uL Lymphocytes # 2.5 (1.0-4.8) k/uL Monocytes # 0.4 (0-1.0) k/uL Eosinophils # 0.2 (0-0.7) k/uL Basophils # 0.1 (0-0.2) k/uL Sodium 139 (137-145) mmol/L Potassium 4.6 (3.5-5.1) mmol/L Chloride 109 H (98-107) mmol/L Carbon Dioxide 24 (22-30) mmol/L Anion Gap 6 mmol/L BUN 11 (7-17) mg/dL Creatinine 0.67 (0.52-1.04) mg/dL Est GFR (CKD-EPI)AfAm >90 (>60 ml/min/1.73 sqM) Est GFR (CKD-EPI)NonAf >90 (>60 ml/min/1.73 sqM) Glucose 79 (74-99) mg/dL Calcium 8.9 (8.4-10.2) mg/dL Total Bilirubin 1.0 (0.2-1.3) mg/dL AST 28 (14-36) U/L ALT 18 (4-34) U/L Alkaline Phosphatase 91 (38-126) U/L Total Protein 6.9 (6.3-8.2) g/dL Albumin 4.1 (3.5-5.0) g/dL Amylase 48 (30-110) U/L Lipase 41 (23-300) U/L Urine Color Light Yellow Urine Appearance Cloudy H (Clear) Urine pH 6.0 (5.0-8.0) Ur Specific Lowes 1.011 (1.001-1.035) Urine Protein Negative (Negative) Urine Glucose (UA) Negative (Negative) Urine Ketones Negative (Negative) Urine Blood Negative (Negative) Urine Nitrite Negative (Negative) Urine Bilirubin Negative (Negative) Urine Urobilinogen <2.0 (<2.0) mg/dL Ur Leukocyte Esterase Small H (Negative) Urine RBC 1 (0-5) /hpf Urine WBC 3 (0-5) /hpf Ur Squamous Epith Cells 14 H (0-4) /hpf Urine Mucus Rare H (None) /hpf Disposition Clinical Impression: Left flank pain, Renal cyst Disposition: HOME SELF-CARE Condition: Good Instructions (If sedation given, give patient instructions): Flank Pain (ED) Additional Instructions: Please use medication as discussed. Please follow-up with family doctor in the next 2 days, recommend follow-up with urology and OBGYN for outpatient US to ensure no pelvic mass. . Please return to emergency room if the symptoms increase or worsen or for any other concerns. Prescriptions: Cephalexin [Keflex] 500 mg PO Q12HR 5 Days #10 cap Is patient prescribed a controlled substance at d/c from ED?: No Referrals: Jeremy Corral MD [Primary Care Provider] - 1-2 days Pipo Contreras MD [STAFF PHYSICIAN] - 1-2 days Carmelo Johnson DO [Doctor of Osteopathic Medicine] - 1-2 days Time of Disposition: 13:13
[2020-08-24 12:23] LABS: Appearance,Urine Cloudy (Clear); Bilirubin,Urine Negative (Negative); Blood,Urine Negative (Negative); Color,Urine Light Yellow; Glucose,Urine (UA) Negative (Negative); Ketones,Urine Negative (Negative); Leukocyte Esterase,Urine Small (Negative); Mucus,Urine Rare /hpf; Nitrite,Urine Negative (Negative); Protein,Urine Negative (Negative); RBC,Urine 1 /hpf (0-5); Specific Gravity,Urine 1.011 (1.001-1.035); Squamous Epithelial Cell,Urine 14 /hpf (0-4); Urobilinogen,Urine <2.0 mg/dL (<2.0); WBC,Urine 3 /hpf (0-5)
[2020-08-24 12:24] LABS: ALT 18 U/L (4-34); AST 28 U/L (14-36); African American GFR (CKD) >90 (>60 ml/min/1.73 sqM); Albumin 4.1 g/dL (3.5-5.0); Alkaline Phosphatase 91 U/L (38-126); Amylase 48 U/L (30-110); Anion Gap 6 mmol/L; Blood Urea Nitrogen 11 mg/dL (7-17); Calcium 8.9 mg/dL (8.4-10.2); Carbon Dioxide 24 mmol/L (22-30); Chloride 109 mmol/L (98-107); Glucose 79 mg/dL (74-99); Lipase 41 U/L (23-300); Non-African American GFR(CKD) >90 (>60 ml/min/1.73 sqM); Potassium 4.6 mmol/L (3.5-5.1); Sodium 139 mmol/L (137-145); Total Protein 6.9 g/dL (6.3-8.2)
[2020-08-24 12:28] LABS: Basophils # (A) 0.1 k/uL (0-0.2); Basophils % (A) 1 %; Eosinophils # (A) 0.2 k/uL (0-0.7); Eosinophils % (A) 2 %; HCT 42.9 % (34.0-46.0); HGB 15.3 gm/dL (11.4-16.0); Lymphocytes # (A) 2.5 k/uL (1.0-4.8); Lymphocytes % (A) 31 %; MCH 33.4 pg (25.0-35.0); MCHC 35.7 g/dL (31.0-37.0); MCV 93.6 fL (80.0-100.0); Mean Platelet Volume 8.2; Monocytes # (A) 0.4 k/uL (0-1.0); Monocytes % (A) 6 %; Neutrophils # (A) 4.6 k/uL (1.3-7.7); Neutrophils % (A) 59 %; Platelet Count 264 k/uL (150-450); RBC 4.59 m/uL (3.80-5.40); RDW 12.4 % (11.5-15.5); WBC 7.8 k/uL (3.8-10.6)
[2020-08-24 12:54] VITALS: BP 140/77; PULSE 88
--- NOTE | 2020-08-24 12:57 | CT ---
EXAMINATION TYPE: CT abdomen pelvis w con DATE OF EXAM: 08/24/2020 HISTORY: Left sided pain. CT DLP: 1466.2mGycm Automated Exposure Control for Dose Reduction was Utilized. CONTRAST: CT scan of the abdomen and pelvis is performed without oral but with IV Contrast, patient injected wi th 100 mL of Isovue 300. COMPARISON: None. FINDINGS: LUNG BASES: No significant abnormality is appreciated. LIVER/GB: Cholecystectomy clips. PANCREAS: No significant abnormality is seen. SPLEEN: No significant abnormality is seen. ADRENALS: No significant abnormality is seen. KIDNEYS: Symmetric cortical medullary uptake and excretion without hydronephrosis seen bilaterally. P rominent but simple appearing benign parapelvic cysts in the left kidney centrally are noted. Additio nal subcentimeter thin-walled cysts anteriorly left kidney mid to lower pole level axial image 40 ser ies 301 noted. BOWEL: Few scattered distal colonic diverticula. No CT evidence for acute diverticulitis. No suspicio us small or large bowel dilatation. UTERUS/ADNEXA: If patient has history of hysterectomy the on the lower uterine segment or cervix is p rominent axial image 79 and further investigation advised to rule out cervical mass/neoplasm otherwis e this could reflect slightly retroflexed uterus normal in size for postmenopausal female. Correlate clinically. Scattered bilateral pelvic phleboliths. LYMPH NODES: No greater than 1cm abdominal or pelvic lymph nodes are appreciated. OSSEOUS STRUCTURES: Mild facet arthropathy lower lumbar spine. Moderate disc space narrowing and spur ring L2-L3 level. Slight spondylolisthesis L2-L3 and L3-L4 levels. OTHER: No significant additional abnormality is seen. IMPRESSION: No significant acute finding is seen to account for patient's clinical symptoms of left-s ided pain. Other Findings as noted above.
== END 2020-08-24 13:34 | disposition home or self-care (01) ==
LOC: EC 11:16
DX: N28.1 Cyst of kidney, acquired (principal); R11.0 Nausea; I10 Essential (primary) hypertension; M06.9 Rheumatoid arthritis, unspecified; Z86.16 Personal history of COVID-19
CPT/HCPCS: 36415; 80053; 82150; 83690; 85025; 81001; 74177; 99284; 96374; J1170; Q9967

== ENCOUNTER → 2020-10-16 | Outpatient (CLI) | payer OTHER ==
--- NOTE | 2020-10-16 17:11 | MR ---
EXAMINATION TYPE: MR pelvis wo con DATE OF EXAM: 10/16/2020 COMPARISON: CT abdomen and pelvis 08/24/2020 HISTORY: Abdomen pain, hx of hysterectomy Standard multiplanar, multisequence MRI departmental protocol Multiplanar, multisequence images of the pelvis were acquired without intravenous contrast. Diffusion weighted imaging was performed. FINDINGS: The patient is status post supracervical hysterectomy. The cervix demonstrates extensive nabothian cy sts. Urinary bladder is unremarkable. No pelvic free fluid. No lymphadenopathy. No osseous marrow rep lacing lesion. The visualized rectum demonstrates no focal thickening. IMPRESSION: Status post supracervical hysterectomy. Extensive cervical nabothian cysts.
== END | disposition home or self-care (01) ==
LOC: RADMRIMAIN 06:54
PROVIDERS: ATTEND Obstetrics & Gynecology
DX: N88.8 Other specified noninflammatory disorders of cervix uteri (principal); Z90.710 Acquired absence of both cervix and uterus
CPT/HCPCS: 72195

== ENCOUNTER 2021-08-11 15:32 | Inpatient (IN) | payer OTHER ==
[2021-08-11] MEDS ORDERED: NITROGLYCERIN OINT 1 INCH/GM PACKET TOPICAL STA (16:00)
[2021-08-11] MEDS ORDERED: LORazepam 2 MG/ML INJ IV STA (16:01)
--- NOTE | 2021-08-11 16:14 | ED ---
General Adult HPI - General Chief complaint: Chest Pain Stated complaint: Chest pain Time Seen by Provider: 08/11/21 15:50 Source: patient, RN notes reviewed, old records reviewed Mode of arrival: wheelchair Limitations: no limitations - History of Present Illness Initial comments: This is a 51-year-old female with past medical history significant for high blood pressure. Patient also strong family history of heart disease both mother and father. Patient states at 2:00 this afternoon she started having a sudden chest pressure in the center of her chest she states became very hot with it she did not have any diaphoretic episodes though she states that she was not short of breath but the pain radiates to her back between her shoulder blades. Tc hart denies any nausea. Patient denied any abdominal pain. Patient states she's had her gallbladder removed. - Related Data Home Medications Medication Instructions Recorded Confirmed Omeprazole 40 mg PO DAILY 02/25/20 08/11/21 Acetaminophen/Diphenhydramine 2 tab PO HS 08/11/21 08/11/21 [Tylenol PM 500-25mg] Cholecalciferol [Vitamin D3 (25 50 mcg PO DAILY 08/11/21 08/11/21 Mcg = 1000 Iu)] Losartan [Cozaar] 25 mg PO DAILY 08/11/21 08/11/21 Simethicone [Gas-X] 125 mg PO DAILY PRN 08/11/21 08/11/21 Allergies Allergy/AdvReac Type Severity Reaction Status Date / Time aspirin AdvReac liver Verified 08/11/21 17:32 failure ibuprofen [From Motrin] AdvReac liver Verified 08/11/21 17:32 failure Review of Systems ROS Statement: Those systems with pertinent positive or pertinent negative responses have been documented in the HPI. ROS Other: All systems not noted in ROS Statement are negative. Past Medical History Past Medical History: Hypertension, Rheumatoid Arthritis (RA) Additional Past Medical History / Comment(s): carpel tunnel. covid 10 07/05/20 History of Any Multi-Drug Resistant Organisms: None Reported Past Surgical History: Section, Cholecystectomy, Orthopedic Surgery Past Psychological History: No Psychological Hx Reported Smoking Status: Never smoker Past Alcohol Use History: None Reported Past Drug Use History: None Reported General Exam - General Exam Comments Initial Comments: GENERAL: Patient is well-developed and well-nourished. Patient is nontoxic and well- hydrated and is in mild distress. ENT: Neck is soft and supple. No significant lymphadenopathy is noted. Oropharynx is clear. Moist mucous membranes. Neck has full range of motion without eliciting any pain. EYES: The sclera were anicteric and conjunctiva were pink and moist. Extraocular movements were intact and pupils were equal round and reactive to light. Eyelids were unremarkable. PULMONARY: Unlabored respirations. Good breath sounds bilaterally. No audible rales rhonchi or wheezing was noted. CARDIOVASCULAR: There is a regular rate and rhythm without any murmurs gallops or rubs. ABDOMEN: Soft and nontender with normal bowel sounds. SKIN: Skin is clear with no lesions or rashes and otherwise unremarkable. NEUROLOGIC: Patient is alert and oriented x3. Cranial nerves II through XII are grossly intact. Motor and sensory are also intact. Normal speech, volume and content. Symmetrical smile. MUSCULOSKELETAL: Normal extremities with adequate strength and full range of motion. LYMPHATICS: No significant lymphadenopathy is noted PSYCHIATRIC: Normal psychiatric evaluation. Limitations: no limitations Course Vital Signs 08/11/21 08/11/21 08/11/21 15:38 16:22 17:07 Temperature 98.7 F Pulse Rate 94 99 Pulse Rate [ 100 Sitting Rn Ed] Respiratory 19 20 Rate Blood Pressure 143/89 137/88 O2 Sat by Pulse 99 98 Oximetry Medical Decision Making - Medical Decision Making EKG shows sinus rhythm at 96 bpm ND interval 238 QRS is 91 QT interval 357 QTC is 410. Patient's EKG shows no ST segment elevation or depression. Chest x-ray shows no acute abnormality. Patient was reevaluated she had nitroglycerin paste felt considerably better after that. I spoke with Dr. Billy. he wanted the patient admitted admitted the patient wro te admitting orders. I consult cardiology - Lab Data Result diagrams: 08/11/21 16:08 08/11/21 16:08 Lab Results 08/11/21 08/11/21 08/11/21 Range/Units 16:08 16:08 16:08 WBC 6.5 (3.8-10.6) k/uL RBC 4.63 (3.80-5.40) m/uL Hgb 15.3 (11.4-16.0) gm/dL Hct 45.4 (34.0-46.0) % MCV 98.0 (80.0-100.0) fL MCH 33.0 (25.0-35.0) pg MCHC 33.7 (31.0-37.0) g/dL RDW 12.7 (11.5-15.5) % Plt Count 288 (150-450) k/uL MPV 8.1 Neutrophils % 58 % Lymphocytes % 26 % Monocytes % 10 % Eosinophils % 2 % Basophils % 1 % Neutrophils # 3.8 (1.3-7.7) k/uL Lymphocytes # 1.7 (1.0-4.8) k/uL Monocytes # 0.6 (0-1.0) k/uL Eosinophils # 0.2 (0-0.7) k/uL Basophils # 0.1 (0-0.2) k/uL PT 9.7 (9.0-12.0) sec INR 0.9 (<1.2) APTT 24.3 (22.0-30.0) sec Sodium 139 (137-145) mmol/L Potassium 4.1 (3.5-5.1) mmol/L Chloride 108 H (98-107) mmol/L Carbon Dioxide 21 L (22-30) mmol/L Anion Gap 10 mmol/L BUN 12 (7-17) mg/dL Creatinine 0.67 (0.52-1.04) mg/dL Est GFR (CKD-EPI)AfAm >90 (>60 ml/min/1.73 sqM) Est GFR (CKD-EPI)NonAf >90 (>60 ml/min/1.73 sqM) Glucose 96 (74-99) mg/dL Calcium 9.1 (8.4-10.2) mg/dL Magnesium 1.9 (1.6-2.3) mg/dL Total Bilirubin 1.4 H (0.2-1.3) mg/dL AST 33 (14-36) U/L ALT 31 (4-34) U/L Alkaline Phosphatase 89 (38-126) U/L Troponin I (0.000-0.034) ng/mL Total Protein 7.6 (6.3-8.2) g/dL Albumin 4.6 (3.5-5.0) g/dL Coronavirus (PCR) (Not Detectd) Influenza Type A RNA (Not Detectd) Influenza Type B (PCR) (Not Detectd) 08/11/21 08/11/21 08/11/21 Range/Units 16:08 17:05 17:05 WBC (3.8-10.6) k/uL RBC (3.80-5.40) m/uL Hgb (11.4-16.0) gm/dL Hct (34.0-46.0) % MCV (80.0-100.0) fL MCH (25.0-35.0) pg MCHC (31.0-37.0) g/dL RDW (11.5-15.5) % Plt Count (150-450) k/uL MPV Neutrophils % % Lymphocytes % % Monocytes % % Eosinophils % % Basophils % % Neutrophils # (1.3-7.7) k/uL Lymphocytes # (1.0-4.8) k/uL Monocytes # (0-1.0) k/uL Eosinophils # (0-0.7) k/uL Basophils # (0-0.2) k/uL PT (9.0-12.0) sec INR (<1.2) APTT (22.0-30.0) sec Sodium (137-145) mmol/L Potassium (3.5-5.1) mmol/L Chloride (98-107) mmol/L Carbon Dioxide (22-30) mmol/L Anion Gap mmol/L BUN (7-17) mg/dL Creatinine (0.52-1.04) mg/dL Est GFR (CKD-EPI)AfAm (>60 ml/min/1.73 sqM) Est GFR (CKD-EPI)NonAf (>60 ml/min/1.73 sqM) Glucose (74-99) mg/dL Calcium (8.4-10.2) mg/dL Magnesium (1.6-2.3) mg/dL Total Bilirubin (0.2-1.3) mg/dL AST (14-36) U/L ALT (4-34) U/L Alkaline Phosphatase (38-126) U/L Troponin I <0.012 (0.000-0.034) ng/mL Total Protein (6.3-8.2) g/dL Albumin (3.5-5.0) g/dL Coronavirus (PCR) Not Detected (Not Detectd) Influenza Type A RNA Not Detected (Not Detectd) Influenza Type B (PCR) Not Detected (Not Detectd) Disposition Clinical Impression: Chest pain Disposition: ADMITTED IP TO THIS HOSP Referrals: Jeremy Corral MD [Medical Doctor] - 1-2 days Time of Disposition: 19:04
[2021-08-11 16:25] LABS: Basophils # (A) 0.1 k/uL (0-0.2); Basophils % (A) 1 %; Eosinophils # (A) 0.2 k/uL (0-0.7); Eosinophils % (A) 2 %; HCT 45.4 % (34.0-46.0); HGB 15.3 gm/dL (11.4-16.0); Lymphocytes # (A) 1.7 k/uL (1.0-4.8); Lymphocytes % (A) 26 %; MCHC 33.7 g/dL (31.0-37.0); Mean Platelet Volume 8.1; Monocytes # (A) 0.6 k/uL (0-1.0); Monocytes % (A) 10 %; Neutrophils # (A) 3.8 k/uL (1.3-7.7); Neutrophils % (A) 58 %; Platelet Count 288 k/uL (150-450); RBC 4.63 m/uL (3.80-5.40); RDW 12.7 % (11.5-15.5); WBC 6.5 k/uL (3.8-10.6)
[2021-08-11 16:35] LABS: INR 0.9 (<1.2); Partial Thromboplastin Time 24.3 sec (22.0-30.0); Prothrombin Time 9.7 sec (9.0-12.0)
[2021-08-11 16:36] LABS: ALT 31 U/L (4-34); AST 33 U/L (14-36); African American GFR (CKD) >90 (>60 ml/min/1.73 sqM); Albumin 4.6 g/dL (3.5-5.0); Alkaline Phosphatase 89 U/L (38-126); Anion Gap 10 mmol/L; Blood Urea Nitrogen 12 mg/dL (7-17); Calcium 9.1 mg/dL (8.4-10.2); Carbon Dioxide 21 mmol/L (22-30); Chloride 108 mmol/L (98-107); Glucose 96 mg/dL (74-99); Magnesium 1.9 mg/dL (1.6-2.3); Non-African American GFR(CKD) >90 (>60 ml/min/1.73 sqM); Potassium 4.1 mmol/L (3.5-5.1); Sodium 139 mmol/L (137-145); Total Bilirubin 1.4 mg/dL (0.2-1.3); Total Protein 7.6 g/dL (6.3-8.2)
--- NOTE | 2021-08-11 16:48 | XR ---
EXAMINATION TYPE: XR chest 2V DATE OF EXAM: 08/11/2021 COMPARISON: 07/16/2020 HISTORY: Cough TECHNIQUE: 2 views FINDINGS: Heart and mediastinum are normal. Lungs are clear. Images normal. Bony thorax is intact IMPRESSION: Normal chest. No change.
[2021-08-11] MEDS ORDERED: NITROGLYCERIN SL TABS 0.4 MG TAB SUBLINGUAL PRN (19:05)
[2021-08-11] MEDS ORDERED: SIMETHICONE 80 MG CHEWABLE PO PRN (20:23)
[2021-08-11] MEDS: diphenhydrAMINE 25 MG CAP PO SCH (22:41)
[2021-08-11] MEDS: ACETAMINOPHEN TAB 500 MG TAB PO SCH (22:41)
[2021-08-12] MEDS: NITROGLYCERIN OINT 1 INCH/GM PACKET TOPICAL SCH ×2 (01:07→06:19)
--- NOTE | 2021-08-12 08:32 | P.CRDCN ---
History of Present Illness Consult date: 08/12/21 History of present illness: HISTORY OF PRESENT ILLNESS: This is a 51-year-old female with a past medical history significant for hypertension. 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 We have been asked to see the patient in consultation for chest pain. Patient examined at the bedside. Patient presented to the hospital with a chief complaint of chest discomfort. Patient states this is the second time she has had chest pain. She reports the first episode was about a month ago when she was picking up children's toys at her house and began having pain in the middle of her chest. She states at that time she went to lay down for 3 hours and it went away. She states yesterday she began having chest discomfort again in the middle of her chest and underneath her rib cage. She denied any radiation of the pain. She states she came concerned so she came to the emergency room for further evaluation. At the time of examination, the patient denies any chest pain or pressure. Patient reports her mother and father both had a history of congestive heart failure. * EKG reveals sinus mechanism with no signs of acute ischemia * Chest xray negative for acute process * Laboratory data: WBC 6.5. Hemoglobin 15.3. Platelet count 288. Sodium 139. Potassium 4.1. BUN 12. Creatinine 0.67. Magnesium 1.9. Troponin negatives 3. * Current home cardiac medications include Cozaar 25 mg daily REVIEW OF SYSTEMS: At the time of my exam: CONSTITUTIONAL: Denies fever or chills. HEENT: Denies blurred vision, vision changes, or eye pain. Denies hemoptysis CARDIOVASCULAR: Denies chest pain. Denies orthopnea. Denies PND. Denies palpitations RESPIRATORY: Denies shortness of breath. GASTROINTESTINAL: Denies abdominal pain. Denies nausea or vomiting. HEMATOLOGIC: Denies bleeding disorders. GENITOURINARY: Denies any blood in urine. SKIN: Denies pruitis. Denies rash. PHYSICAL EXAM: VITAL SIGNS: Reviewed. GENERAL: Well-developed in no acute distress. HEENT: Head is normocephalic. Pupils are equal, round. Sclerae anicteric. Mucous membranes of the mouth are moist. Neck supple. No JVD or thyromegaly LUNGS: Respirations even and unlabored. Lungs essentially clear to auscultation bilaterally. HEART: Regular rate and rhythm. S1 and S2 heard. ABDOMEN: Soft. Nondistended. Nontender. EXTREMITIES: Normal range of motion. No clubbing or cyanosis. Peripheral pulses intact. No lower extremity edema NEUROLOGIC: Awake and alert. Oriented x 3. ASSESSMENT: Chest pain, troponins negative 3 Hypertension Morbid obesity PLAN: An acute coronary event has been ruled out Continue home dose of Cozaar Patient to undergo stress echo today to assess for ischemia If negative, the patient may be discharged home today from a cardiac standpoint Nurse practitioner note has been reviewed by physician. Signing provider agrees with the documented findings, assessment, and plan of care. Past Medical History Past Medical History: Deep Vein Thrombosis (DVT), Hypertension, Rheumatoid Arthritis (RA) Additional Past Medical History / Comment(s): carpel tunnel. covid 10 07/05/20. DVT in June 2010. No longer on anticoagulation. History of Any Multi-Drug Resistant Organisms: None Reported Past Surgical History: Section, Cholecystectomy, Hysterectomy, Orthopedic Surgery Additional Past Surgical History / Comment(s): 7 surgeries left knee. 1 surgery on the right. No joint replacements. Additional Past Anesthesia/Blood Transfusion Reaction / Comment(s): Pt states she cannot have dramamine after surgery. Past Psychological History: No Psychological Hx Reported Smoking Status: Never smoker Past Alcohol Use History: None Reported Past Drug Use History: None Reported Medications and Allergies Home Medications Medication Instructions Recorded Confirmed Type Omeprazole 40 mg PO DAILY 02/25/20 08/11/21 History Acetaminophen/Diphenhydramine 2 tab PO HS 08/11/21 08/11/21 History [Tylenol PM 500-25mg] Cholecalciferol [Vitamin D3 (25 50 mcg PO DAILY 08/11/21 08/11/21 History Mcg = 1000 Iu)] Losartan [Cozaar] 25 mg PO DAILY 08/11/21 08/11/21 History Simethicone [Gas-X] 125 mg PO DAILY PRN 08/11/21 08/11/21 History Allergies Allergy/AdvReac Type Severity Reaction Status Date / Time aspirin AdvReac liver Verified 08/11/21 17:32 failure ibuprofen [From Motrin] AdvReac liver Verified 08/11/21 17:32 failure Physical Exam Vitals: Vital Signs Temp Pulse Pulse Pulse Resp BP BP 08/12/21 02:00 75 08/12/21 01:34 98.0 F 75 16 118/76 08/11/21 20:42 18 08/11/21 20:35 98.8 F 98 16 131/79 08/11/21 19:48 99.2 F 94 18 142/79 08/11/21 17:07 99 20 137/88 08/11/21 16:22 100 08/11/21 15:38 98.7 F 94 19 143/89 Pulse Ox 08/12/21 02:00 08/12/21 01:34 97 08/11/21 20:42 08/11/21 20:35 95 08/11/21 19:48 95 08/11/21 17:07 98 08/11/21 16:22 08/11/21 15:38 99 Intake and Output 08/11/21 08/12/21 08/12/21 22:59 06:59 14:59 Intake Total 400 0 Balance 400 0 Intake: Oral 400 0 Other: Voiding Method Toilet Weight 99.79 kg Results 08/11/21 16:08 08/11/21 16:08 Cardiac Enzymes 08/11/21 08/11/21 08/11/21 Range/Units 16:08 16:08 19:53 AST 33 (14-36) U/L Troponin I <0.012 <0.012 (0.000-0.034) ng/mL 08/11/21 Range/Units 23:27 AST (14-36) U/L Troponin I <0.012 (0.000-0.034) ng/mL Coagulation 08/11/21 Range/Units 16:08 PT 9.7 (9.0-12.0) sec APTT 24.3 (22.0-30.0) sec CBC 08/11/21 Range/Units 16:08 WBC 6.5 (3.8-10.6) k/uL RBC 4.63 (3.80-5.40) m/uL Hgb 15.3 (11.4-16.0) gm/dL Hct 45.4 (34.0-46.0) % Plt Count 288 (150-450) k/uL Comprehensive Metabolic Panel 08/11/21 Range/Units 16:08 Sodium 139 (137-145) mmol/L Potassium 4.1 (3.5-5.1) mmol/L Chloride 108 H (98-107) mmol/L Carbon Dioxide 21 L (22-30) mmol/L BUN 12 (7-17) mg/dL Creatinine 0.67 (0.52-1.04) mg/dL Glucose 96 (74-99) mg/dL Calcium 9.1 (8.4-10.2) mg/dL AST 33 (14-36) U/L ALT 31 (4-34) U/L Alkaline Phosphatase 89 (38-126) U/L Total Protein 7.6 (6.3-8.2) g/dL Albumin 4.6 (3.5-5.0) g/dL Current Medications Generic Name Dose Route Start Last Admin Trade Name Freq PRN Reason Stop Dose Admin Acetaminophen 1,000 mg 08/11/21 22:30 08/11/21 22:41 Acetaminophen Tab 500 Mg Tab PO 1,000 mg HS RUDOLPH Administration Cholecalciferol 50 mcg 08/12/21 09:00 Cholecalciferol 25 Mcg (1000 Iu) Tablet PO DAILY [facility] Diphenhydramine HCl 50 mg 08/11/21 22:30 08/11/21 22:41 Diphenhydramine 25 Mg Cap PO 50 mg HS RUDOLPH Administration Losartan Potassium 25 mg 08/12/21 09:00 Losartan 25 Mg Tab PO DAILY [facility]OL[facility] Nitroglycerin 0.4 mg 08/11/21 19:05 Nitroglycerin Sl Tabs 0.4 Mg Tab SUBLINGUAL Q5M PRN Chest Pain Nitroglycerin 1 inch 08/12/21 00:00 08/12/21 06:19 Nitroglycerin Oint 1 Inch/Gm Packet TOPICAL Not Given Q6HR [facility] Pantoprazole Sodium 40 mg 08/12/21 09:00 Pantoprazole 40 Mg Tablet PO DAILY [facility] Simethicone 125 mg 08/11/21 20:23 Simethicone 80 Mg Chewable PO DAILY PRN gas Intake and Output 08/11/21 08/12/21 08/12/21 22:59 06:59 14:59 Intake Total 400 0 Balance 400 0 Intake: Oral 400 0 Other: Voiding Method Toilet Weight 99.79 kg 08/11/21 16:08 08/11/21 16:08
[2021-08-12] MEDS: PANTOPRAZOLE 40 MG TABLET PO SCH (09:05)
[2021-08-12] MEDS: LOSARTAN 25 MG TAB PO SCH (09:05)
[2021-08-12] MEDS: CHOLECALCIFEROL 25 MCG (1000 IU) TABLET PO SCH (09:05)
[2021-08-12 09:47] LABS: Chol/HDL Ratio 3.01 Ratio; LDL Cholesterol,Calculated 85.8 mg/dL (0.0-131.0)
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
[2021-08-12] MEDS ORDERED: ACETAMINOPHEN TAB 325 MG TAB PO STA (11:19)
--- NOTE | 2021-08-12 11:31 | CA ---
Transthoracic Echo Report Name: Nory Haro Age: 51 Gender: F : 1970 Exam Date: 08/12/2021 10:41 Exam Location: [facility] Ht (in): 60 Wt (lb): 220 Ordering Physician: Halima Salgado Attending/Referring Phys: [id number], Damian Managing Broker Carolyn Cruz RDCS Procedure CPT: Indications: LV function Cardiac Hx: No cardiac HX Technical Quality: Technically difficult study Contrast 1: Lumason Total Dose (mL): 1 Contrast 2: Total Dose (mL): MEASUREMENTS (Male / Female) Normal Values FINDINGS Left Ventricle Normal Left ventricular size, wall thickness, systolic function with no obvious regional wall motion abnormalities. Normal Left ventricular diastolic filling pattern. Left ventricular ejection fraction is estimated at 55-60 %. Right Ventricle The right ventricle is normal in size and function. Right Atrium The right atrium is normal in size. Left Atrium The left atrium is normal in size. Mitral Valve Structurally normal mitral valve without significant stenosis or prolapse. There is a trace of mitral regurgitation. Aortic Valve Structurally normal aortic valve without significant sclerosis or stenosis. There is no aortic regurgitation. Tricuspid Valve Structurally normal tricuspid valve without significant stenosis. Pulmonary artery systolic pressure is normal. Trace tricuspid regurgitation. Pulmonic Valve Structurally normal pulmonic valve without significant stenosis. There is no pulmonic regurgitation. Pericardium Normal pericardium without effusion. Aorta Normal aortic root dimension. CONCLUSIONS Technically suboptimal study. LV systolic function is normal. Previewed by: Dr. Armen Bradley MD (Electronically Signed) Final Date: 12 Aug 2021 11:31
--- NOTE | 2021-08-12 11:59 | CA ---
Stress Echo Report Nory Haro Age: 51 Gender: F : 1970 Exam Date: 08/12/2021 11:03 Exam Location: [facility] Ht (in): 60 Wt (lb): 220 Ordering Physician: Halima Salgado Referring Physician: ,, Duct Layer Helper: Lorenza Buchanan RDCS Technologist Procedure CPT: Indication: CP ICD-9 Codes: Rhythm: Patient History: Cardiac Medications: Medications in past 24 hours: Contrast: Lumason Stress Results Protocol: Steven Total dose(mL): 5 Exercise Duration (min:sec): Max ST Depression (mm): Angina Score: Flores Score: METS: 6.0 Resting HR: 83 Resting BP: 124 / 74 Peak HR: 161 Peak BP: / 67 Max Predicted HR: 169 95 % Max Predicted HR Target HR: 144 Double Product: Stress Summary: BP Response: Reason for Termination: Cardiac Symptoms: ECG Analysis Resting ECG: Normal sinus rhythm normal axis normal intervals Stress ECG: No significant ST segment depression Arrhythmia: No significant cardiac arrhythmia Echo Analysis Resting Echo: Normal left ventricular size wall motion systolic function Peak Echo Analysis: peak exercise there is hypokinesis of the basal and mid inferior wall MEASUREMENTS (Male/Female) Normal Values CONCLUSIONS Poor exercise tolerance Negative stress test by EKG criteria Abnormal stress echo Dr. Armen Bradley MD (Electronically Signed) Final Date: 12 Aug 2021 11:58
[2021-08-12] MEDS ORDERED: ALPRAZolam 0.25 MG TAB PO PRN (12:20)
[2021-08-12] MEDS ORDERED: ALPRAZolam 0.5 MG TAB PO PRN (12:20)
[2021-08-12] MEDS ORDERED: NITROGLYCERIN SL TABS 0.4 MG TAB SUBLINGUAL PRN (12:20)
[2021-08-12] MEDS: SODIUM CHLORIDE 0.9% 1,000 ML in EMPTY BAG 1 BAG IV SCH ×2 (16:06→22:25)
[2021-08-12] MEDS: diphenhydrAMINE 25 MG CAP PO SCH (19:59)
[2021-08-12] MEDS: ACETAMINOPHEN TAB 500 MG TAB PO SCH (20:00)
[2021-08-13] MEDS ORDERED: ASPIRIN 325 MG TAB PO ONE (05:00)
[2021-08-13] MEDS ORDERED: ATORVASTATIN 80 MG TAB PO ONE (05:00)
[2021-08-13] MEDS ORDERED: HEPARIN SODIUM,PORCINE 2,500 UNIT in SODIUM CHLORIDE 0.9% 250 ML IRRIGATION PRN (07:00)
[2021-08-13] MEDS ORDERED: HEPARIN SODIUM,PORCINE 10,000 UNIT in SODIUM CHLORIDE 0.9% 1,000 ML IRRIGATION PRN (07:00)
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
[2021-08-13] MEDS: SODIUM CHLORIDE 0.9% 1,000 ML in EMPTY BAG 1 BAG IV SCH ×3 (08:05→21:29)
[2021-08-13] MEDS: CHOLECALCIFEROL 25 MCG (1000 IU) TABLET PO SCH (08:05)
[2021-08-13] MEDS: PANTOPRAZOLE 40 MG TABLET PO SCH (08:05)
[2021-08-13] MEDS: LOSARTAN 25 MG TAB PO SCH (08:05)
[2021-08-13 08:27] LABS: Glucose,Whole Blood 94 mg/dL (75-99)
[2021-08-13] MEDS ORDERED: VERAPAMIL 2.5 MG/ML 2 ML AMP ONE (08:53)
[2021-08-13] MEDS ORDERED: IV FLUID CONTINUATION 1,000 ML IV ONE (09:02)
[2021-08-13] MEDS ORDERED: fentaNYL (PF) 50 MCG/ML 2 ML AMP ONE (09:05)
[2021-08-13] MEDS ORDERED: fentaNYL (PF) 50 MCG/ML 2 ML AMP IV ONE (09:15)
[2021-08-13] MEDS ORDERED: LIDOCAINE 1% PF 10 MG/ML (5 ML AMP) SQ ONE ×2 (09:15→09:16)
[2021-08-13] MEDS: MIDAZOLAM 2 MG/2 ML VIAL IV ONE ×2 (09:15→09:22)
[2021-08-13] MEDS ORDERED: HEPARIN SODIUM 1,000 UN/ML (10ML VL) ONE (09:26)
[2021-08-13] MEDS ORDERED: HEPARIN SODIUM 1,000 UN/ML (10ML VL) IV ONE (09:29)
[2021-08-13] MEDS ORDERED: VERAPAMIL SYRINGE (5 MG/10 ML) INTRAARTER ONE (09:31)
[2021-08-13] MEDS ORDERED: NITROGLYCERIN SL TABS 0.4 MG TAB SUBLINGUAL ONE ×4 (09:33→09:46)
[2021-08-13] MEDS ORDERED: ATROPINE SULFATE 0.1 MG/ML 10ML SYRINGE IVP ONE (09:38)
[2021-08-13] MEDS: NITROGLYCERIN 1000MCG/10ML SYRINGE INTRACORON ONE ×2 (09:39→09:40)
[2021-08-13] MEDS ORDERED: NOREPINEPHRINE 4 MG in SODIUM CHLORIDE 0.9% 250 ML IV ONE (09:40)
[2021-08-13] MEDS ORDERED: IOPAMIDOL-370 100ML BTL INJ ONE (09:48)
--- NOTE | 2021-08-13 10:32 | P.CARDCATH ---
Description of Procedure: PROCEDURES PERFORMED: Left heart catheterization, bilateral coronary angiography, intracoronary nitroglycerin INDICATION: Chest pain, abnormal stress test HISTORY: Patient is a pleasant 51-year-old female with a history of hypertension, DVT, GERD, rheumatoid arthritis who has had 2 episodes of substernal chest pain and presented to emergency department with normal EKG, normal troponins and some of chest pain appeared to improve after nitro and underwent stress echo where there was inducible inferior ischemia. Secondary to abnormal stress test heart catheterization was recommended. CONSENT:I have discussed the risks, benefits and alternative therapies for the above-mentioned procedure and for both sedation/analgesia as well as necessary blood product administration, if indicated, as they pertain to this patient. The patient has indicated understanding and acceptance of the risks and procedures discussed. PROCEDURE: After the risks, benefits and alternatives of the above mentioned procedure explained in detail with the patient, informed consent was obtained. Patient was taken to the catheterization lab and prepped and draped in usual fashion. 1% lidocaine was used to anesthetize the right radial artery. A 6- Togolese sheath was placed in the right radial artery using modified Seldinger technique. Right coronary angiography was performed with a 5-Togolese JR5 catheter in various views. A 5-Togolese FR5 catheter was inserted into the left ventricle and pressure measurements were obtained. After right coronary angiography was performed and while the left coronary system was engaged, patient developed ST elevations and chest pain. Left coronary angiography was performed with a 5Fr FL 3.5 while patient received nitroglycerin under the tongue. Repeat angiography of the RCA was performed with a 6-Togolese FR4 guide catheter which showed no significant disease however LUZ 2 flow. Intracoronary nitroglycerin was performed with resolution of chest pain and EKG changes after approximately 3-5 total minutes. Patient's blood pressure to drop and was given small doses of norepinephrine. A 0.014 BMW wire was easily advanced into the distal RCA. Repeat angiography was performed with normal flow. There was a 10% proximal lesion felt to be possibly related to spasm versus less likely dissection. IVUS machine was broken and therefore unable to perform intravascular ultrasound. Patient was not having any chest pain with normal EKG and therefore wire and catheter were removed. The right radial sheath was removed and a TR band was placed with hemostasis achieved. Patient was transported back to the post catheterization holding area in stable condition. Conscious Sedation: Patient was monitored under the direct supervision of vision of myself for conscious sedation using Versed and fentanyl for a total duration of 32 minutes HEMODYNAMICS: Aorta: 112/76 LV: 108/4, LVEDP 6 SELECTIVE CORONARY ARTERIOGRAPHY: LEFT MAIN: The left main is a large caliber vessel which bifurcates into the LAD and circumflex. There is no significant stenosis. LEFT ANTERIOR DESCENDING CORONARY ARTERY: LAD is a large caliber vessel which wraps around to the apex. There is no significant stenosis. LEFT CIRCUMFLEX CORONARY ARTERY: Left circumflex is a moderate caliber vessel without significant stenosis. RIGHT CORONARY ARTERY: The right coronary artery is a large caliber vessel which gives off a PDA and PLV branch and is the dominant vessel. There is no significant stenosis. FINAL IMPRESSION: 1. Normal coronary arteries as described above. 2. Low normal left sided filling pressures 3. Transient inferior ST elevation with chest pain during catheterization with LUZ 2 flow noted in RCA. Consideration of possible plaque embolism, air embolism however no evidence of this on repeat angiography. Consideration of proximal dissection however does not appear to be and unable to perform IVUS. Gilbert to be possibly related to vasospasm and will treat with vasodilator. PLAN: 1. Aggressive risk factor modification per most recent ACC/AHA guidelines. 2. Given transient ST elevation without obvious embolism or dissection we will treat empirically for vasospasm. Stop her losartan and add aspirin, amlodipine as well as PRN nitro. Monitor patient for another 24 hours and if remains stable discharge home tomorrow.
[2021-08-13] MEDS: amLODIPine 5 MG TAB PO SCH (14:40)
[2021-08-13] MEDS: ACETAMINOPHEN TAB 500 MG TAB PO SCH (16:11)
[2021-08-13] MEDS: diphenhydrAMINE 25 MG CAP PO SCH (19:17)
[2021-08-14] MEDS: amLODIPine 5 MG TAB PO SCH (07:35)
[2021-08-14] MEDS: PANTOPRAZOLE 40 MG TABLET PO SCH (07:35)
[2021-08-14] MEDS: CHOLECALCIFEROL 25 MCG (1000 IU) TABLET PO SCH (07:35)
[2021-08-14 08:28] VITALS: BP 118/87; PULSE 81; RESP 16; TEMP 98
[2021-08-14] MEDS ORDERED: ASPIRIN 81 MG PO SCH (09:00)
--- NOTE | 2021-08-14 09:23 | P.PN ---
Subjective HISTORY OF PRESENT ILLNESS: This is a 51-year-old female with a past medical history significant for hypertension. Patient does not follow with a mr teacher. We have been asked to see the patient in consultation for chest pain. Patient examined at the bedside. Patient presented to the hospital with a chief complaint of chest discomfort. Patient states this is the second time she has had chest pain. She reports the first episode was about a month ago when she was picking up children's toys at her house and began having pain in the middle of her chest. She states at that time she went to lay down for 3 hours and it went away. She states yesterday she began having chest discomfort again in the middle of her ch est and underneath her rib cage. She denied any radiation of the pain. She states she came concerned so she came to the emergency room for further evaluation. At the time of examination, the patient denies any chest pain or pressure. Patient reports her mother and father both had a history of co ngestive heart failure. * EKG reveals sinus mechanism with no signs of acute ischemia * Chest xray negative for acute process * Laboratory data: WBC 6.5. Hemoglobin 15.3. Platelet count 288. Sodium 139. Potassium 4.1. BUN 12. Creatinine 0.67. Magnesium 1.9. Troponin negatives 3. * Current home cardiac medications include Cozaar 25 mg daily 08/14 T and examined. Patient underwent heart catheterization yesterday secondary to abnormal stress test with inferior ischemia. Patient was found to have normal coronary arteries however after right coronary angiography was performed patient started having chest pain and was found to have transient ST elevations. Repeat right coronary angiography showed LUZ 2 flow however no significant coronary artery disease. There was mild 10% narrowing of the proximal RCA. IVUS was not able to be performed however no appreciable dissection. Consideration was of embolism from aortic plaque versus air embolism versus vasospasm. Secondary to chest pain during catheterization appearing to resemble her other 2 episodes patient will be treated as vasospasm and therefore losartan was changed to amlodipine as well as as needed nitro. She denies any further chest pain or pressure. Does have mild tenderness around the right radial site however palpable 2+ right radial pulse. PHYSICAL EXAM: VITAL SIGNS: Reviewed. GENERAL: Well-developed in no acute distress. HEENT: Head is normocephalic. Pupils are equal, round. Sclerae anicteric. Mucous membranes of the mouth are moist. Neck supple. No JVD or thyromegaly LUNGS: Respirations even and unlabored. Lungs essentially clear to auscultation bilaterally. HEART: Regular rate and rhythm. S1 and S2 heard. ABDOMEN: Soft. Nondistended. Nontender. EXTREMITIES: Normal range of motion. No clubbing or cyanosis. Peripheral pulses intact. No lower extremity edema NEUROLOGIC: Awake and alert. Oriented x 3. ASSESSMENT: Chest pain x 2 episodes Hypertension Abnormal stress test with inferior ischemia Morbid obesity Transient ST elevations during heart catheterization 08/13/2021 with LUZ 2 flow noted in RCA with possibility of plaque or air embolism however favored to be vasospasm with symptoms very similar to other to chest pain episodes. Appears consistent with Printzmetal's angina. PLAN: Discussed findings of heart catheterization with patient. Given symptoms during transient ST elevation/ chest pain were similar to her other 2 episodes and symptoms improved with nitroglycerin we will treat empirically for Printzmetal's angina, vasospastic disease. Always a consideration of dissection or embolism from catheterization however given similar episodes we will treat for vasospasm. Continue with amlodipine going home and stop the losartan. Continue with as needed nitroglycerin. May consider long-acting nitroglycerin if continues to have episodes however borderline blood pressures at this time. Continue aspirin. Follow-up in office in 1 week. Objective - Vital Signs Vital signs: Vital Signs Temp 98.0 F 08/14/21 07:00 Pulse 81 08/14/21 07:00 Resp 16 08/14/21 07:00 BP 118/87 08/14/21 07:00 Pulse Ox 97 08/14/21 07:00 Intake & Output 08/13/21 08/14/21 08/14/21 18:59 06:59 18:59 Intake Total 899 Output Total 0 Balance 899 0 Intake: IV 425 Oral 474 Output: Emesis 0 Other: Voiding Method Toilet Toilet Toilet # Voids 1 - Labs CBC & Chem 7: 08/11/21 16:08 08/11/21 16:08
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
== END 2021-08-14 09:50 | disposition home or self-care (01) | DRG 287 ==
LOC: EC 15:32 → 6NMEDSUR 19:05 → OBSVTOIN 08-13 19:21
PROVIDERS: ADMIT Internal Medicine Geriatric Medicine; ATTEND Internal Medicine Geriatric Medicine
PROC: 4A023N7 Measurement of Cardiac Sampling and Pressure, Left Heart, Percutaneous Approach (ICD-10-PCS; principal; 2021-08-13 09:00)
PROC: B2111ZZ Fluoroscopy of Multiple Coronary Arteries using Low Osmolar Contrast (ICD-10-PCS; principal; 2021-08-13 09:00)
PROC: 3E033XZ Introduction of Vasopressor into Peripheral Vein, Percutaneous Approach (ICD-10-PCS; principal; 2021-08-13 09:00)
DX: R07.9 Chest pain, unspecified (principal); I20.1 Angina pectoris with documented spasm; Z68.41 Body mass index [BMI] 40.0-44.9, adult; E66.01 Morbid (severe) obesity due to excess calories; I10 Essential (primary) hypertension; M08.00 Unspecified juvenile rheumatoid arthritis of unspecified site; Z20.822 Contact with and (suspected) exposure to COVID-19; K21.9 Gastro-esophageal reflux disease without esophagitis; K44.9 Diaphragmatic hernia without obstruction or gangrene; Z79.899 Other long term (current) drug therapy; Z90.49 Acquired absence of other specified parts of digestive tract; Z87.19 Personal history of other diseases of the digestive system; Z90.710 Acquired absence of both cervix and uterus; Z98.891 History of uterine scar from previous surgery; Z87.39 Personal history of other diseases of the musculoskeletal system and connective tissue; Z86.718 Personal history of other venous thrombosis and embolism; Z86.16 Personal history of COVID-19; Z98.890 Other specified postprocedural states; Z88.6 Allergy status to analgesic agent; Z82.49 Family history of ischemic heart disease and other diseases of the circulatory system; Z80.3 Family history of malignant neoplasm of breast; Z83.3 Family history of diabetes mellitus; Z80.0 Family history of malignant neoplasm of digestive organs; Z82.3 Family history of stroke
CPT/HCPCS: 36415; 71046; 80053; 80061; 83735; 84484; 85025; 85610; 85730; 87502; 87635; 93005; 93306; 93351; 93458; 96374; 99285

== ENCOUNTER 2021-08-15 10:52 | Emergency (ER) | payer OTHER ==
[2021-08-15 10:57] VITALS: TEMP 98
--- NOTE | 2021-08-15 11:21 | ED ---
General Adult HPI - General Chief complaint: Skin/Abscess/Foreign Body Stated complaint: Rash,postop Time Seen by Provider: 08/15/21 11:00 Source: patient Mode of arrival: ambulatory Limitations: no limitations - History of Present Illness Initial comments: Patient is a 51-year-old female who presents to the emergency primary for evaluation of rash. Patient had heart catheterization through her right wrist on Monday. Patient felt well after the procedure. She woke up this morning with increased redness around the catheter insertion site and up the forearm. She has not noticed any increased swelling. There is no pain however the rash does itch. No fever or chills. No rash on other areas of the body. No other concerns. Patient denies use of new hygiene products and other possible irritants. - Related Data Home Medications Medication Instructions Recorded Confirmed Omeprazole 40 mg PO DAILY 02/25/20 08/11/21 Acetaminophen/Diphenhydramine 2 tab PO HS 08/11/21 08/11/21 [Tylenol PM 500-25mg] Cholecalciferol [Vitamin D3 (25 50 mcg PO DAILY 08/11/21 08/11/21 Mcg = 1000 Iu)] Losartan [Cozaar] 25 mg PO DAILY 08/11/21 08/11/21 Simethicone [Gas-X] 125 mg PO DAILY PRN 08/11/21 08/11/21 Previous Rx's Medication Instructions Recorded Aspirin 81 mg PO DAILY 08/13/21 Atorvastatin [Lipitor] 20 mg PO DAILY #30 tablet 08/13/21 amLODIPine [Norvasc] 5 mg PO DAILY tab 08/13/21 Allergies Allergy/AdvReac Type Severity Reaction Status Date / Time aspirin AdvReac liver Verified 08/15/21 10:57 failure ibuprofen [From Motrin] AdvReac liver Verified 08/15/21 10:57 failure Review of Systems ROS Statement: Those systems with pertinent positive or pertinent negative responses have been documented in the HPI. ROS Other: All systems not noted in ROS Statement are negative. Past Medical History Past Medical History: Deep Vein Thrombosis (DVT), Hypertension, Rheumatoid Arthritis (RA) Additional Past Medical History / Comment(s): carpel tunnel. covid 10 07/05/20. DVT in June 2010. No longer on anticoagulation. History of Any Multi-Drug Resistant Organisms: None Reported Past Surgical History: Section, Cholecystectomy, Heart Catheterization, Hysterectomy, Orthopedic Surgery Additional Past Surgical History / Comment(s): 7 surgeries left knee. 1 surgery on the right. No joint replacements. Additional Past Anesthesia/Blood Transfusion Reaction / Comment(s): Pt states she cannot have dramamine after surgery. Past Psychological History: No Psychological Hx Reported Smoking Status: Never smoker Past Alcohol Use History: None Reported Past Drug Use History: None Reported General Exam Limitations: no limitations General appearance: alert, in no apparent distress Head exam: Present: atraumatic, normocephalic, normal inspection Eye exam: Present: normal appearance, PERRL, EOMI. Absent: scleral icterus, conjunctival injection, periorbital swelling Neck exam: Present: normal inspection Respiratory exam: Present: normal lung sounds bilaterally. Absent: respiratory distress, wheezes, rales, rhonchi, stridor Cardiovascular Exam: Present: regular rate, normal rhythm, normal heart sounds. Absent: systolic murmur, diastolic murmur, rubs, gallop, clicks GI/Abdominal exam: Present: soft, normal bowel sounds. Absent: distended, tenderness, guarding, rebound, rigid Right Forearm Wrist exam: Present: other (Ecchymosis at catheter site with surrounding streaking erythema and papules moving up the anterior forearm. No warm, tenderness, or swelling) Vascular: Present: normal capillary refill. Absent: vascular compromise, Pallo Neurological exam: Present: alert, oriented X3, CN II-XII intact Psychiatric exam: Present: normal affect, normal mood Skin exam: Present: warm, dry, intact, normal color, rash Course Vital Signs 08/15/21 08/15/21 10:54 12:00 Temperature 98 F Pulse Rate 90 83 Respiratory 16 18 Rate Blood Pressure 171/100 144/99 O2 Sat by Pulse 99 96 Oximetry Medical Decision Making - Medical Decision Making This is a 51-year-old female who presents with a rash at her heart catheterization site. Thorough history and examination were performed. The procedure was on Monday. Patient woke up with a rash this morning over the right wrist. There is ecchymosis around catheter site with erythematous streaking and papules moving up the right anterior forearm. Although it is well demarcated there is no warmth, swelling, or tenderness. Patient states it does itch. No fever or chills. This appears to be a contact dermatitis.I am not converned with cellulitis, thrombus, or pseudo-aneurysm. Patient's blood pressure is elevated at 171/100. Patient states since the procedure her blood pressure has decreased substantially. She did take her blood pressure medications this morning. Repeat blood pressure is 144/99. Patient states she will continue to monitor her blood pressure at home and follow-up with her printed circuit board preassembler. She will be discharged with this plan. She is instructed to take Benadryl as needed for the rash. Return parameters discussed. She verbalizes understanding and is agreeable. Dr. Romeo is my attending. Disposition Clinical Impression: Contact dermatitis, History of cardiac catheterization, Hypertension Disposition: HOME SELF-CARE Condition: Good Instructions (If sedation given, give patient instructions): Contact Dermatitis (ED) Additional Instructions: Please take Benadryl for rash as needed. Continue to monitor the rash for changes. Continue to monitor blood pressure and follow up with printed circuit board preassembler or primary care provider if there is elevation. Return to the emergency department if you experience new, concerning, or worsening symptoms Is patient prescribed a controlled substance at d/c from ED?: No Referrals: Mike Billy MD [Primary Care Provider] - 1-2 days Time of Disposition: 11:43
[2021-08-15 12:01] VITALS: BP 144/99; PULSE 83; RESP 18
== END 2021-08-15 12:00 | disposition home or self-care (01) ==
LOC: EC 10:52
DX: L25.9 Unspecified contact dermatitis, unspecified cause (principal); I10 Essential (primary) hypertension; M06.9 Rheumatoid arthritis, unspecified; Z86.718 Personal history of other venous thrombosis and embolism; Z98.890 Other specified postprocedural states; Z79.82 Long term (current) use of aspirin; Z88.6 Allergy status to analgesic agent
CPT/HCPCS: 99282

== ENCOUNTER 2021-08-16 11:52 | Emergency (ER) | payer OTHER ==
[2021-08-16 11:57] VITALS: TEMP 98.3
[2021-08-16] MEDS ORDERED: LORazepam 1 MG TAB PO STA (12:26)
[2021-08-16] MEDS ORDERED: ASPIRIN 81 MG PO STA (12:26)
--- NOTE | 2021-08-16 12:46 | XR ---
EXAMINATION TYPE: XR chest 2V DATE OF EXAM: 08/16/2021 COMPARISON: Chest x-ray 5 days ago. HISTORY: Chest pain. TECHNIQUE: Frontal and lateral views of the chest are obtained. FINDINGS: There is no suspicious focal air space opacity, pleural effusion, or pneumothorax seen. T he cardiac silhouette size is stable and upper limits of normal. The osseous structures are intact. Overlying EKG leads redemonstrated. IMPRESSION: No acute process. No significant change from recent x-ray.
--- NOTE | 2021-08-16 12:52 | ED ---
General Adult HPI - General Chief complaint: Chest Pain Stated complaint: Chest pain Time Seen by Provider: 08/16/21 12:16 Source: patient, EMS, RN notes reviewed, old records reviewed Mode of arrival: EMS - History of Present Illness Initial comments: Patient is a 51-year-old female with past medical history remarkable for her DVT in 2010, rheumatoid arthritis, hypertension who presents emergency Department complaining of atypical chest pain. Patient states this is identical to pain that she is experiencing the last month or so. States it is intermittent. Recently was discharged from the hospital following a cardiac catheterization which revealed no signs of blockages. Cardiac cath did reveal that during the cath, patient did have a transient episode of ST segment elevation which resolved. Was observed for one day and discharged home. He is due to follow up with outpatient cardiology. Patient states that at approximately 7 or 8 AM this morning, over 4 hours ago the patient began having a right-sided and substernal chest pain which she describes as a pressure sensation that does not radiate. States she became extremely anxious and panicked. Presents emergency department for further evaluation. Denies any shortness of breath. Denies any nausea, vomiting, abdominal pain. States she has been feeling very anxious lately, particularly with her recent admission to the hospital. Denies any lower extremity edema. Denies any fevers, chills, sick contacts. No other acute complaints at this time. Patient presents for further evaluation. Took an 81 mg aspirin earlier today. States the pain earlier was worse, approximately 5/10 earlier and is now a 1/10 if there at all.Pain started while she was watching TV. - Related Data Home Medications Medication Instructions Recorded Confirmed Omeprazole 40 mg PO DAILY 02/25/20 08/11/21 Acetaminophen/Diphenhydramine 2 tab PO HS 08/11/21 08/11/21 [Tylenol PM 500-25mg] Cholecalciferol [Vitamin D3 (25 50 mcg PO DAILY 08/11/21 08/11/21 Mcg = 1000 Iu)] Losartan [Cozaar] 25 mg PO DAILY 08/11/21 08/11/21 Simethicone [Gas-X] 125 mg PO DAILY PRN 08/11/21 08/11/21 Previous Rx's Medication Instructions Recorded Aspirin 81 mg PO DAILY 08/13/21 Atorvastatin [Lipitor] 20 mg PO DAILY #30 tablet 08/13/21 amLODIPine [Norvasc] 5 mg PO DAILY tab 08/13/21 Isosorbide Mononitrate ER [Imdur] 15 mg PO DAILY 15 Days #15 tab 08/16/21 LORazepam [Ativan] 0.5 mg PO DAILY PRN 3 Days #3 tab 08/16/21 Allergies Allergy/AdvReac Type Severity Reaction Status Date / Time aspirin AdvReac liver Verified 08/15/21 10:57 failure ibuprofen [From Motrin] AdvReac liver Verified 08/15/21 10:57 failure Review of Systems ROS Statement: Those systems with pertinent positive or pertinent negative responses have been documented in the HPI. Review of Systems: CONST: Denies fever EYES: Denies blurry vision ENT: Denies nasal congestion C/V: Endorses resolved chest pain. RESP: Denies shortness of breath GI: Denies abdominal pain : Denies dysuria SKIN: Denies rash. MSK: Denies joint pain. NEURO: Denies headache ROS Other: All systems not noted in ROS Statement are negative. Past Medical History Past Medical History: Deep Vein Thrombosis (DVT), Hypertension, Rheumatoid Arthritis (RA) Additional Past Medical History / Comment(s): carpel tunnel. covid 10 07/05/20. DVT in June 2010. No longer on anticoagulation. History of Any Multi-Drug Resistant Organisms: None Reported Past Surgical History: Section, Cholecystectomy, Heart Catheterization, Hysterectomy, Orthopedic Surgery Additional Past Surgical History / Comment(s): 7 surgeries left knee. 1 surgery on the right. No joint replacements. Additional Past Anesthesia/Blood Transfusion Reaction / Comment(s): Pt states she cannot have dramamine after surgery. Past Psychological History: No Psychological Hx Reported Smoking Status: Never smoker Past Alcohol Use History: None Reported Past Drug Use History: None Reported General Exam - General Exam Comments Initial Comments: General: Appears in no acute distress. HEAD: Normal with no signs of head trauma. EYES: PERRLA, EOMI, conjunctiva normal, no discharge. ENT: Hearing grossly intact, normal oropharynx. RESPIRATORY: Clear breath sounds bilaterally. No wheezes, rales, or rhonchi. C/V: Regular rate and rhythm. S1 and S2 auscultated, no edema, peripheral pulses 2+ and intact throughout ABD: Abd is soft, nontender, nondistended EXT: Normal range of motion, no obvious deformity SKIN: No rashes or lesions observed on exposed skin. NEURO: Alert and oriented x 4. Cranial nerves II-XII intact. No focal sensory or strength deficits. Course Vital Signs 08/16/21 08/16/21 08/16/21 11:53 11:57 13:54 Temperature 98.3 F Pulse Rate 94 93 Respiratory 20 18 Rate Blood Pressure 142/105 153/87 O2 Sat by Pulse 98 100 Oximetry 08/16/21 14:16 Temperature Pulse Rate 89 Respiratory 18 Rate Blood Pressure 151/91 O2 Sat by Pulse 98 Oximetry Medical Decision Making - Medical Decision Making Based on the patient's presentation and physical exam, with the recent clean catheterization which I reviewed the report, I believe this pain is unlikely to be cardiac in nature but cannot rule out at this time. I discussed this with the patient. It is atypical. The history of DVTs, would like to obtain a screening d-dimer. This is in addition cardiac labs and EKG and chest x-ray. She was in agreement this plan. She'll be given aspirin as well as a dose of Ativan here in the department. His remain within normal limits. Patient is currently asymptomatic. EKG revealed no signs of acute ischemia. Chest x-ray showed no acute cardiopulmonary process.Laboratory studies were remarkable for a slightly elevated troponin of 0.058, which I attribute likely secondary to her recent clean cardiac cath. On reevaluation, patient is asymptomatic. She feels much improved. I discussed the results of her labs and imaging with her. Explained that I would like to speak with her primary care physician, Dr. Billy prior to disposition decision, she recently had a full cardiac workup here. She was in agreement this plan. I spoke with Dr. Billy who was in agreement with discharge home and follow up with cardiology and primary care. She has an appointment on . He requested that I start the patient on low-dose Imdur daily. This will be done. I discussed this with the patient and she was in agreement this plan. Heart score is low at 3. We discussed that she is likely experiencing an anxiety component with this as well, which she is in agreement. I will provide the patient with a prescription for Imdur. I instructed the pat ient to follow up with their PCP in the next 3 days. I explained that the patient should return to the emergency department if they experience any worsening symptoms. Strict return precautions were discussed with the patient. The patient expressed understanding of these instructions. I answered all questions that the patient had. The patient was discharged home in good condition with their prescriptions and follow up information. - Lab Data Result diagrams: 08/16/21 12:48 08/16/21 12:48 Lab Results 08/16/21 08/16/21 08/16/21 Range/Units 12:48 12:48 12:48 WBC 7.2 (3.8-10.6) k/uL RBC 4.57 (3.80-5.40) m/uL Hgb 15.0 (11.4-16.0) gm/dL Hct 44.1 (34.0-46.0) % MCV 96.5 (80.0-100.0) fL MCH 32.7 (25.0-35.0) pg MCHC 33.9 (31.0-37.0) g/dL RDW 12.0 (11.5-15.5) % Plt Count 285 (150-450) k/uL MPV 8.2 Neutrophils % 59 % Lymphocytes % 29 % Monocytes % 6 % Eosinophils % 3 % Basophils % 1 % Neutrophils # 4.2 (1.3-7.7) k/uL Lymphocytes # 2.1 (1.0-4.8) k/uL Monocytes # 0.5 (0-1.0) k/uL Eosinophils # 0.3 (0-0.7) k/uL Basophils # 0.1 (0-0.2) k/uL PT 9.9 (9.0-12.0) sec INR 0.9 (<1.2) APTT 23.8 (22.0-30.0) sec D-Dimer 0.51 (<0.60) mg/L FEU Sodium 142 (137-145) mmol/L Potassium 3.7 (3.5-5.1) mmol/L Chloride 108 H (98-107) mmol/L Carbon Dioxide 27 (22-30) mmol/L Anion Gap 7 mmol/L BUN 15 (7-17) mg/dL Creatinine 0.80 (0.52-1.04) mg/dL Est GFR (CKD-EPI)AfAm >90 (>60 ml/min/1.73 sqM) Est GFR (CKD-EPI)NonAf 86 (>60 ml/min/1.73 sqM) Glucose 90 (74-99) mg/dL Calcium 9.3 (8.4-10.2) mg/dL Magnesium 1.9 (1.6-2.3) mg/dL Total Bilirubin 1.1 (0.2-1.3) mg/dL AST 27 (14-36) U/L ALT 32 (4-34) U/L Alkaline Phosphatase 96 (38-126) U/L Troponin I (0.000-0.034) ng/mL Total Protein 7.4 (6.3-8.2) g/dL Albumin 4.5 (3.5-5.0) g/dL 08/16/21 Range/Units 12:48 WBC (3.8-10.6) k/uL RBC (3.80-5.40) m/uL Hgb (11.4-16.0) gm/dL Hct (34.0-46.0) % MCV (80.0-100.0) fL MCH (25.0-35.0) pg MCHC (31.0-37.0) g/dL RDW (11.5-15.5) % Plt Count (150-450) k/uL MPV Neutrophils % % Lymphocytes % % Monocytes % % Eosinophils % % Basophils % % Neutrophils # (1.3-7.7) k/uL Lymphocytes # (1.0-4.8) k/uL Monocytes # (0-1.0) k/uL Eosinophils # (0-0.7) k/uL Basophils # (0-0.2) k/uL PT (9.0-12.0) sec INR (<1.2) APTT (22.0-30.0) sec D-Dimer (<0.60) mg/L FEU Sodium (137-145) mmol/L Potassium (3.5-5.1) mmol/L Chloride (98-107) mmol/L Carbon Dioxide (22-30) mmol/L Anion Gap mmol/L BUN (7-17) mg/dL Creatinine (0.52-1.04) mg/dL Est GFR (CKD-EPI)AfAm (>60 ml/min/1.73 sqM) Est GFR (CKD-EPI)NonAf (>60 ml/min/1.73 sqM) Glucose (74-99) mg/dL Calcium (8.4-10.2) mg/dL Magnesium (1.6-2.3) mg/dL Total Bilirubin (0.2-1.3) mg/dL AST (14-36) U/L ALT (4-34) U/L Alkaline Phosphatase (38-126) U/L Troponin I 0.058 H* (0.000-0.034) ng/mL Total Protein (6.3-8.2) g/dL Albumin (3.5-5.0) g/dL - EKG Data -: EKG Interpreted by Me EKG Comments: 12-lead Electrocardiogram Interpretation Note EKG was reviewed and interpreted by myself. 12-lead ECG performed at 1200 is interpreted by me as revealing normal sinus rhythm at a rate of 91 beats per minute. [place] is normal. OK interval is 139 ms, QRS duration is 90 ms, QTc is 411 ms.. There were no ST or T wave abnormalities to suggest myocardial ischemia or injury. R wave progression across the precordium was satisfactory. By my interpretation this EKG is non-diagnostic for acute ischemia. Relatively unchanged from prior EKGs. Disposition Clinical Impression: Atypical chest pain Disposition: HOME SELF-CARE Condition: Good Instructions (If sedation given, give patient instructions): Chest Pain (ED) Prescriptions: LORazepam [Ativan] 0.5 mg PO DAILY PRN 3 Days #3 tab PRN Reason: Anxiety Isosorbide Mononitrate ER [Imdur] 15 mg PO DAILY 15 Days #15 tab Is patient prescribed a controlled substance at d/c from ED?: Yes Referrals: Mike Billy MD [Primary Care Provider] - 1-2 days Time of Disposition: 14:00
[2021-08-16 13:05] LABS: Basophils # (A) 0.1 k/uL (0-0.2); Basophils % (A) 1 %; Eosinophils # (A) 0.3 k/uL (0-0.7); Eosinophils % (A) 3 %; HCT 44.1 % (34.0-46.0); Lymphocytes # (A) 2.1 k/uL (1.0-4.8); Lymphocytes % (A) 29 %; MCH 32.7 pg (25.0-35.0); MCHC 33.9 g/dL (31.0-37.0); MCV 96.5 fL (80.0-100.0); Mean Platelet Volume 8.2; Monocytes # (A) 0.5 k/uL (0-1.0); Monocytes % (A) 6 %; Neutrophils # (A) 4.2 k/uL (1.3-7.7); Neutrophils % (A) 59 %; Platelet Count 285 k/uL (150-450); RBC 4.57 m/uL (3.80-5.40); WBC 7.2 k/uL (3.8-10.6)
[2021-08-16 13:13] LABS: ALT 32 U/L (4-34); AST 27 U/L (14-36); African American GFR (CKD) >90 (>60 ml/min/1.73 sqM); Albumin 4.5 g/dL (3.5-5.0); Alkaline Phosphatase 96 U/L (38-126); Anion Gap 7 mmol/L; Blood Urea Nitrogen 15 mg/dL (7-17); Calcium 9.3 mg/dL (8.4-10.2); Carbon Dioxide 27 mmol/L (22-30); Chloride 108 mmol/L (98-107); Glucose 90 mg/dL (74-99); Magnesium 1.9 mg/dL (1.6-2.3); Non-African American GFR(CKD) 86 (>60 ml/min/1.73 sqM); Potassium 3.7 mmol/L (3.5-5.1); Sodium 142 mmol/L (137-145); Total Bilirubin 1.1 mg/dL (0.2-1.3); Total Protein 7.4 g/dL (6.3-8.2)
[2021-08-16 13:21] LABS: INR 0.9 (<1.2); Partial Thromboplastin Time 23.8 sec (22.0-30.0); Prothrombin Time 9.9 sec (9.0-12.0)
[2021-08-16 13:54] VITALS: RESP 18
[2021-08-16 14:17] VITALS: BP 151/91; PULSE 89
== END 2021-08-16 14:25 | disposition home or self-care (01) ==
LOC: EC 11:52
DX: R07.89 Other chest pain (principal); R77.8 Other specified abnormalities of plasma proteins; I10 Essential (primary) hypertension; Z86.16 Personal history of COVID-19; Z88.6 Allergy status to analgesic agent; Z79.899 Other long term (current) drug therapy
CPT/HCPCS: 36415; 71046; 80053; 83735; 84484; 85025; 85379; 85610; 85730; 93005; 99285

== ENCOUNTER 2021-10-14 08:42 | Emergency (ER) | payer OTHER ==
[2021-10-14 08:58] VITALS: BP 144/90; PULSE 81; RESP 16; TEMP 98
--- NOTE | 2021-10-14 09:39 | ED ---
Fall HPI - General Chief Complaint: Fall Stated Complaint: L elbow injury, Fall Time Seen by Provider: 10/14/21 08:59 Source: patient, RN notes reviewed Mode of arrival: ambulatory Limitations: no limitations - History of Present Illness Initial Comments: This a 51-year-old female presents emergency Department with chief complaint of fall, left elbow injury. Patient states that she missed uneven surface/curb in a parking lot states that she fell forward last night. Patient states that she injured her left elbow. Patient states that she cannot fully extend it has pain with supination. She is [id number] denies any head injury no loss conscious. Patient offers no complaints. - Related Data Home Medications Medication Instructions Recorded Confirmed Omeprazole 40 mg PO DAILY 02/25/20 08/24/21 Acetaminophen/Diphenhydramine 2 tab PO HS 08/11/21 08/24/21 [Tylenol PM 500-25mg] Cholecalciferol [Vitamin D3 (25 50 mcg PO DAILY 08/11/21 08/24/21 Mcg = 1000 Iu)] Aspirin EC [Ecotrin Low Dose] 81 mg PO DAILY 08/24/21 08/24/21 Isosorbide Mononitrate ER [Imdur] 15 mg PO DAILY 08/24/21 08/24/21 Nitroglycerin Sl Tabs [Nitrostat] 0.4 mg SL Q5M PRN 08/24/21 08/24/21 amLODIPine [Norvasc] 10 mg PO DAILY 08/24/21 08/24/21 Previous Rx's Medication Instructions Recorded Atorvastatin [Lipitor] 20 mg PO DAILY #30 tablet 08/13/21 LORazepam [Ativan] 0.5 mg PO DAILY PRN 3 Days #3 tab 08/16/21 Allergies Allergy/AdvReac Type Severity Reaction Status Date / Time aspirin AdvReac liver Verified 10/14/21 08:58 failure ibuprofen [From Motrin] AdvReac liver Verified 10/14/21 08:58 failure Review of Systems ROS Statement: Those systems with pertinent positive or pertinent negative responses have been documented in the HPI. ROS Other: All systems not noted in ROS Statement are negative. Past Medical History Past Medical History: Deep Vein Thrombosis (DVT), Hypertension, Rheumatoid Arthritis (RA) Additional Past Medical History / Comment(s): carpel tunnel. covid 10 07/05/20. DVT in June 2010. No longer on anticoagulation. History of Any Multi-Drug Resistant Organisms: None Reported Past Surgical History: Section, Cholecystectomy, Heart Catheterization, Hysterectomy, Orthopedic Surgery Additional Past Surgical History / Comment(s): 7 surgeries left knee. 1 surgery on the right. No joint replacements. Additional Past Anesthesia/Blood Transfusion Reaction / Comment(s): Pt states she cannot have dramamine after surgery. Past Psychological History: No Psychological Hx Reported Smoking Status: Never smoker Past Alcohol Use History: None Reported Past Drug Use History: None Reported General Exam Limitations: no limitations General appearance: alert, in no apparent distress Head exam: Present: atraumatic, normocephalic, normal inspection Eye exam: Present: normal appearance, PERRL, EOMI. Absent: scleral icterus, conjunctival injection, periorbital swelling ENT exam: Present: normal exam, mucous membranes moist Neck exam: Present: normal inspection, full ROM. Absent: tenderness, meningismus, lymphadenopathy Respiratory exam: Present: normal lung sounds bilaterally. Absent: respiratory distress, wheezes, rales, rhonchi, stridor Cardiovascular Exam: Present: regular rate, normal rhythm, normal heart sounds. Absent: systolic murmur, diastolic murmur, rubs, gallop, clicks Extremities exam: Present: other (Left elbow patient does not have full range of motion she has pain with supination, extension and flexion there is tenderness over the radial head, no iris deformity mild swelling no tenderness above or below.) Course Vital Signs 10/14/21 08:57 Temperature 98 F Pulse Rate 81 Respiratory 16 Rate Blood Pressure 144/90 O2 Sat by Pulse 98 Oximetry Medical Decision Making - Medical Decision Making X-rays negative for acute fracture. She has no abnormal fat pad signs. Patient's left elbow sprain. Patient discharged in stable condition return parameters were discussed. Disposition Clinical Impression: Fall, Sprain of left elbow Disposition: HOME SELF-CARE Condition: Stable Instructions (If sedation given, give patient instructions): Elbow Sprain (ED) Additional Instructions: Please return to the Emergency Department if symptoms worsen or any other concerns. Is patient prescribed a controlled substance at d/c from ED?: No Referrals: Mike Billy MD [Primary Care Provider] - 1-2 days Riri Rockwell DO [Doctor of Osteopathic Medicine] - 1-2 days Time of Disposition: 10:25
--- NOTE | 2021-10-14 09:56 | XR ---
EXAMINATION TYPE: XR elbow complete LT DATE OF EXAM: 10/14/2021 CLINICAL HISTORY: pain TECHNIQUE: Frontal, lateral and oblique images of the left elbow are obtained. COMPARISON: None. FINDINGS: There is no acute fracture/dislocation evident of the elbow. No abnormal fat pad signs ar e seen. The overlying soft tissue appears unremarkable. IMPRESSION: There is no acute fracture or dislocation of the elbow. ICD 10 NO FRACTURE, INITIAL EVALUATION
== END 2021-10-14 10:45 | disposition home or self-care (01) ==
LOC: EC 08:42
DX: S53.402A Unspecified sprain of left elbow, initial encounter (principal); I10 Essential (primary) hypertension; Z88.6 Allergy status to analgesic agent; Z79.899 Other long term (current) drug therapy; W18.30XA Fall on same level, unspecified, initial encounter
CPT/HCPCS: 99284

== ENCOUNTER 2022-06-22 13:01 | Emergency (ER) | payer OTHER ==
[2022-06-22 13:47] VITALS: RESP 18; TEMP 98.8
[2022-06-22] MEDS ORDERED: KETOROLAC 15 MG/ML 1 ML VIAL IVP STA (14:03)
--- NOTE | 2022-06-22 14:04 | ED ---
General Adult HPI - General Chief complaint: Back Pain/Injury Stated complaint: back/neck/head pain Time Seen by Provider: 06/22/22 13:26 Source: patient, RN notes reviewed Mode of arrival: ambulatory Limitations: no limitations - History of Present Illness Initial comments: Patient is a 51-year-old female presenting to the emergency room with complaints of pain in her upper back and neck along with head and face. She reports that the symptoms have been ongoing for approximately 10 days and have beginning progressively worse. She reports that she has never had a headache as severe as her headaches today. She also reports that approximately 2 days ago she started developing "sores" on her head which are limited to the right upper scalp. She states that she was evaluated a few weeks ago for what she thought was a possible kidney stone workup at that time was benign. She states that she was having muscle spasms at that time and her primary care provider placed her on steroids and the symptoms occurred shortly after that. She denies any chest pain, shortness of breath, abdominal pain, nausea, vomiting, focal neurological deficits, dizziness areas or chills. She is a past medical history significant for DVT, hypertension, and rheumatoid arthritis. - Related Data Home Medications Medication Instructions Recorded Confirmed Omeprazole 40 mg PO DAILY 02/25/20 06/22/22 Cholecalciferol [Vitamin D3 (25 50 mcg PO DAILY 08/11/21 06/22/22 Mcg = 1000 Iu)] Aspirin EC [Ecotrin Low Dose] 81 mg PO DAILY 08/24/21 06/22/22 Isosorbide Mononitrate ER [Imdur] 15 mg PO DAILY 08/24/21 06/22/22 amLODIPine [Norvasc] 5 mg PO DAILY 06/07/22 06/22/22 Previous Rx's Medication Instructions Recorded Atorvastatin [Lipitor] 20 mg PO DAILY #30 tablet 08/13/21 Baclofen 10 mg PO TID PRN #15 tab 06/07/22 Meloxicam [Mobic] 15 mg PO DAILY PRN #10 tablet 06/07/22 Ibuprofen [Motrin] 800 mg PO Q8H PRN 7 Days #21 tab 06/22/22 valACYclovir HCL [Valtrex] 1,000 mg PO Q8H 7 Days #21 tab 06/22/22 Allergies Allergy/AdvReac Type Severity Reaction Status Date / Time No Known Allergies Allergy Verified 06/22/22 14:00 Review of Systems ROS Statement: Those systems with pertinent positive or pertinent negative responses have been documented in the HPI. ROS Other: All systems not noted in ROS Statement are negative. Past Medical History Past Medical History: Deep Vein Thrombosis (DVT), Hypertension, Rheumatoid Arthritis (RA) Additional Past Medical History / Comment(s): carpel tunnel. covid 10 07/05/20. DVT in June 2010. No longer on anticoagulation. History of Any Multi-Drug Resistant Organisms: None Reported Past Surgical History: Section, Cholecystectomy, Heart Catheterization, Hysterectomy, Orthopedic Surgery Additional Past Surgical History / Comment(s): 7 surgeries left knee. 1 surgery on the right. No joint replacements. Additional Past Anesthesia/Blood Transfusion Reaction / Comment(s): Pt states she cannot have dramamine after surgery. Past Psychological History: No Psychological Hx Reported Smoking Status: Never smoker Past Alcohol Use History: None Reported Past Drug Use History: None Reported General Exam - General Exam Comments Initial Comments: GENERAL: No acute distress, well developed, well nourished. HEENT: Normocephalic, atraumatic. Pupils equal, round, reactive to light. Moist mucous membranes. LUNGS: No respiratory distress. Clear to auscultation, no adventitious sounds, no use of accessory muscles. HEART: Regular rate and rhythm without murmur, rub, or gallop. ABDOMEN: Normal bowel sounds. Soft, non-tender, non-distended. BACK: Normal inspection. EXTREMITIES: No edema. No tenderness. Moves all extremities. NEUROLOGIC: Alert & oriented x 3. CN II-XII grossly intact. PSYCHIATRIC: Normal affect and behavior. DERMATOLOGIC: Multiple open lesions noted to the right scalp starting at the hairline. No drainage from lesions noted; lesions very tender to the touch Limitations: no limitations Course Vital Signs 06/22/22 06/22/22 06/22/22 13:07 13:42 18:07 Temperature 98.5 F 98.8 F Pulse Rate 101 H 81 72 Respiratory 20 18 18 Rate Blood Pressure 165/89 149/84 109/79 O2 Sat by Pulse 98 96 97 Oximetry Medical Decision Making - Medical Decision Making Was pt. sent in by a medical professional or institution (, PA, PASTEURIZING MACHINE OPERATOR, urgent care, hospital, or long-term...) When possible be specific @ -No Did you speak to anyone other than the patient for history (EMS, parent, family, police, friend...)? What history was obtained from this source @ -No Did you review nursing and triage notes (agree or disagree)? Why? @ -I reviewed and agree with nursing and triage notes Were old charts reviewed (outside hosp., previous admission, EMS record, old EKG, old radiological studies, urgent care reports/EKG's, long-term records)? Report findings @ -No old charts were reviewed Differential Diagnosis (chest pain, altered mental status, abdominal pain women, abdominal pain men, vaginal bleeding, weakness, fever, dyspnea, syncope, headache, dizziness, GI bleed, back pain, seizure, CVA, palpatations, mental health, musculoskeletal)? @ -Differential Headache: Migraine, tension, cluster, carbon monoxide, central venous thrombosis, pension karma temporal arteritis, acute closure glaucoma, intercranial hemorrhage, mastoiditis, sinusitis, head injury, this is not meant to be an all-inclusive list. EKG interpreted by me (3pts min.). @ -None done X-rays interpreted by me (1pt min.). @ -None done CT interpreted by me (1pt min.). @ -CT brain and cervical spine: No acute intracranial process, and no area of ischemia, mass or shift, no intracranial hemorrhage. No cervical spine fracture or subluxation. No soft tissue swelling. U/S interpreted by me (1pt. min.). @ -None done What testing was considered but not performed or refused? (CT, X-rays, U/S, labs)? Why? @ -None What meds were considered but not given or refused? Why? @ -Hypodensity analgesics offered but declined. Did you discuss the management of the patient with other professionals (professionals i.e. , PA, PASTEURIZING MACHINE OPERATOR, lab, RT, psych nurse, social staff worker, precipitation equipment tender, teacher, classification officer, rn case mgr)? Give summary @ -No Was smoking cessation discussed for >3mins.? @ -No Was critical care preformed (if so, how long)? @ -No Were there social determinants of health that impacted care today? How? (Homel essness, low income, unemployed, alcoholism, drug addiction, transportation, low edu. Level, literacy, decrease access to med. care, [facility], rehab)? @ -No Was there de-escalation of care discussed even if they declined (Discuss DNR or withdrawal of care, Hospice)? DNR status @ -No What co-morbidities impacted this encounter? (DM, HTN, Smoking, COPD, CAD, Cancer, CVA, ARF, Chemo, Hep., AIDS, mental health diagnosis, sleep apnea, morbid obesity)? @ -None Was patient admitted / discharged? Hospital course, mention meds given and route, prescriptions, significant lab abnormalities, going to OR and other pertinent info. @ -51-year-old female presenting to the emergency room with complaints of pain in her upper back and neck along with head and face. She reports that the symptoms have been ongoing for approximately 10 days and have beginning progressively worse. She reports that she has never had a headache as severe as her headaches today. She also reports that approximately 2 days ago she started developing "sores" on her head which are limited to the right upper scalp. Will initiate workup regarding headache with CT of brain and cervical spine along with laboratory studies of CBC, CMP and viral swabs for COVID, influenza and RSV. Analgesics of morphine offered and declined. Will give Toradol for pain. Advised in the setting of severe head and skin pain of her face along with development of sores will plan for proceeding with treatment for shingles. Computed tomography scan negative for acute intracranial or cervical sent spine process. Pain improved with Toradol. CBC unremarkable CMP redemonstrates chronic elevated bilirubin at 1.8 AST elevated 45-day-old T normal alkaline phosphate normal renal function normal potassium elevated 5.5 but slightly hemolyzed no need for redraw or treatment of hyperkalemia. Viral swabs negative for Covid, RSV and influenza. Above findings discussed with patient at length. Discussed symptoms and concerns regarding shingles. Will place patient on Valtrex treatment for shingles. Advised avoidance of itching and utilization of Motrin prescription provided of 100 mg every 8 hours for pain as needed. Advise follow-up with primary care provider. Questions and concerns. Return parameters to the emergency room discussed at length. Will discharge patient home in stable condition on oral antiviral and anti- inflammatory treatment for shingles of the scalp along with headache advising follow-up with primary care provider. Undiagnosed new problem with uncertain prognosis? @ -No Drug Therapy requiring intensive monitoring for toxicity (Heparin, Nitro, Insulin, Cardizem)? @ -No Were any procedures done? @ -No Diagnosis/symptom? @ -Headache Acute, or Chronic, or Acute on Chronic? @ -Acute Uncomplicated (without systemic symptoms) or Complicated (systemic symptoms)? @ -Uncomplicated Side effects of treatment? @ -No Exacerbation, Progression, or Severe Exacerbation? @ -No Poses a threat to life or bodily function? How? (Chest pain, USA, [place], pneumonia, PE, COPD, DKA, ARF, appy, cholecystitis, CVA, Diverticulitis, Homicidal, Suicidal, threat to staff... and all critical care pts) @ -No Diagnosis/symptom? @ -Herpes zoster of the scalp Acute, or Chronic, or Acute on Chronic? @ -Acute Uncomplicated (without systemic symptoms) or Complicated (systemic symptoms)? @ -Uncomplicated Side effects of treatment? @ -none Exacerbation, Progression, or Severe Exacerbation] @ -no Poses a threat to life or bodily function? @ -no Case discussed with Dr. Vergara. - Lab Data Result diagrams: 06/22/22 15:27 06/22/22 15:27 Lab Results 06/22/22 06/22/22 06/22/22 Range/Units 15:27 15:27 15:59 WBC 8.7 (3.8-10.6) k/uL RBC 4.64 (3.80-5.40) m/uL Hgb 15.4 (11.4-16.0) gm/dL Hct 45.5 (34.0-46.0) % MCV 98.1 (80.0-100.0) fL MCH 33.3 (25.0-35.0) pg MCHC 33.9 (31.0-37.0) g/dL RDW 12.6 (11.5-15.5) % Plt Count 260 (150-450) k/uL MPV 8.4 Neutrophils % 66 % Lymphocytes % 24 % Monocytes % 6 % Eosinophils % 3 % Basophils % 0 % Neutrophils # 5.7 (1.3-7.7) k/uL Lymphocytes # 2.1 (1.0-4.8) k/uL Monocytes # 0.6 (0-1.0) k/uL Eosinophils # 0.2 (0-0.7) k/uL Basophils # 0.0 (0-0.2) k/uL Sodium 137 (137-145) mmol/L Potassium 5.5 H (3.5-5.1) mmol/L Chloride 106 (98-107) mmol/L Carbon Dioxide 25 (22-30) mmol/L Anion Gap 6 mmol/L BUN 15 (7-17) mg/dL Creatinine 0.58 (0.52-1.04) mg/dL Est GFR (CKD-EPI)AfAm >90 (>60 ml/min/1.73 sqM) Est GFR (CKD-EPI)NonAf >90 (>60 ml/min/1.73 sqM) Glucose 90 (74-99) mg/dL Calcium 8.4 (8.4-10.2) mg/dL Total Bilirubin 1.8 H (0.2-1.3) mg/dL AST 45 H (14-36) U/L ALT 33 (4-34) U/L Alkaline Phosphatase 89 (38-126) U/L Total Protein 6.7 (6.3-8.2) g/dL Albumin 3.8 (3.5-5.0) g/dL Influenza Type A (PCR) Not Detected (Not Detectd) Influenza Type B (PCR) Not Detected (Not Detectd) RSV (PCR) Not Detected (Not Detectd) SARS-CoV-2 (PCR) Not Detected (Not Detectd) Disposition Clinical Impression: Headache, Shingles Disposition: HOME SELF-CARE Condition: Stable Instructions (If sedation given, give patient instructions): Shingles (ED), Acute Headache (ED) Additional Instructions: Utilize Motrin 800 mg prescription every 6-8 hours as needed for pain. Complete course of Valtrex. Avoid itching and scratching lesions to scalp. Please follow- up with your primary care provider.Please return to the Emergency Department if symptoms worsen or any other concerns. Prescriptions: Ibuprofen [Motrin] 800 mg PO Q8H PRN 7 Days #21 tab PRN Reason: Pain valACYclovir HCL [Valtrex] 1,000 mg PO Q8H 7 Days #21 tab Is patient prescribed a controlled substance at d/c from ED?: No Referrals: Mike Billy MD [Primary Care Provider] - 1-2 days Time of Disposition: 16:56
--- NOTE | 2022-06-22 15:23 | CT ---
EXAMINATION TYPE: CT brain rod wo con DATE OF EXAM: 06/22/2022 COMPARISON: NONE HISTORY: Neck and head pain. Denies injury. CT DLP: 1845.2 mGycm. Automated Exposure Control for Dose Reduction was Utilized. TECHNIQUE: CT scan of the head and cervical spine are performed without contrast. FINDINGS: There is no acute intracranial hemorrhage, mass effect, or midline shift identified. The ventricles and sulci are within normal limits in size for patient's age. Green-white matter differen tiation is fairly well preserved. The calvarium is intact. Nasal septum is deviated to left of midlin e. The globes are intact and the visualized sinuses are clear. Cervical spine is visualized in its entirety from C1 through upper thoracic levels and demonstrates s atisfactory alignment without evidence of acute fracture or dislocation. Prevertebral soft tissue ap pears within normal limits. The C1-C2 articulation is within normal limits on the coronal images. V ertebral body heights are maintained. Mild to moderate spurring and disc space narrowing C5-C6 level is seen. Spinal canal Fairly well-preserved. Axial images show no pneumothorax. There is heterogeneou s enlarged multinodular thyroid gland. Advise nonemergent thyroid ultrasound to further evaluate if t his is not known finding. IMPRESSION: 1. There is no acute fracture or dislocation evident in the cervical spine. 2. No acute intracranial hemorrhage, mass effect, or midline shift is seen.
[2022-06-22 15:43] LABS: Basophils % (A) 0 %; Eosinophils # (A) 0.2 k/uL (0-0.7); Eosinophils % (A) 3 %; HCT 45.5 % (34.0-46.0); HGB 15.4 gm/dL (11.4-16.0); Lymphocytes # (A) 2.1 k/uL (1.0-4.8); Lymphocytes % (A) 24 %; MCH 33.3 pg (25.0-35.0); MCHC 33.9 g/dL (31.0-37.0); MCV 98.1 fL (80.0-100.0); Mean Platelet Volume 8.4; Monocytes # (A) 0.6 k/uL (0-1.0); Monocytes % (A) 6 %; Neutrophils # (A) 5.7 k/uL (1.3-7.7); Neutrophils % (A) 66 %; Platelet Count 260 k/uL (150-450); RBC 4.64 m/uL (3.80-5.40); RDW 12.6 % (11.5-15.5); WBC 8.7 k/uL (3.8-10.6)
[2022-06-22 15:52] LABS: ALT 33 U/L (4-34); AST 45 U/L (14-36); African American GFR (CKD) >90 (>60 ml/min/1.73 sqM); Albumin 3.8 g/dL (3.5-5.0); Alkaline Phosphatase 89 U/L (38-126); Anion Gap 6 mmol/L; Blood Urea Nitrogen 15 mg/dL (7-17); Calcium 8.4 mg/dL (8.4-10.2); Carbon Dioxide 25 mmol/L (22-30); Chloride 106 mmol/L (98-107); Glucose 90 mg/dL (74-99); Non-African American GFR(CKD) >90 (>60 ml/min/1.73 sqM); Sodium 137 mmol/L (137-145); Total Bilirubin 1.8 mg/dL (0.2-1.3); Total Protein 6.7 g/dL (6.3-8.2)
[2022-06-22 15:57] LABS: Potassium 5.5 mmol/L (3.5-5.1)
[2022-06-22 18:15] VITALS: BP 109/79; PULSE 72
== END 2022-06-22 18:10 | disposition home or self-care (01) ==
LOC: EC 13:01
DX: R51.9 Headache, unspecified (principal); B02.9 Zoster without complications; I10 Essential (primary) hypertension; Z79.82 Long term (current) use of aspirin; Z79.899 Other long term (current) drug therapy; Z86.16 Personal history of COVID-19; Z90.49 Acquired absence of other specified parts of digestive tract; Z20.822 Contact with and (suspected) exposure to COVID-19
CPT/HCPCS: 99284; 96374; 36415; 80053; 85025; 87636; 72125; 70450; J1885

== ENCOUNTER 2023-03-10 09:57 | Emergency (ER) | payer OTHER ==
[2023-03-10 10:12] VITALS: TEMP 98.1
--- NOTE | 2023-03-10 10:42 | ED ---
URI HPI - General Chief Complaint: Upper Respiratory Infection Stated Complaint: pneumonia symptoms Time Seen by Provider: 03/10/23 10:16 Source: patient, RN notes reviewed Mode of arrival: ambulatory Limitations: no limitations - History of Present Illness Initial Comments: Patient is a 52-year-old female presented ER with chief complaint of URI. Paticarlito nt states that her symptoms first started on Thanksgiving, [id number]. Patient states her symptoms did seem to be improving and healing time she would experience a cough was when laying down and she believes it was postnasal drip. Patient states this morning she woke up and endorses sinus pressure and feeling ill. Patient denies any fevers, chills, night sweats, shortness breath, chest pain. - Related Data Home Medications Medication Instructions Recorded Confirmed Omeprazole 40 mg PO DAILY 02/25/20 06/22/22 Cholecalciferol [Vitamin D3 (25 50 mcg PO DAILY 08/11/21 06/22/22 Mcg = 1000 Iu)] Aspirin EC [Ecotrin Low Dose] 81 mg PO DAILY 08/24/21 06/22/22 Isosorbide Mononitrate ER [Imdur] 15 mg PO DAILY 08/24/21 06/22/22 amLODIPine [Norvasc] 5 mg PO DAILY 06/07/22 06/22/22 Previous Rx's Medication Instructions Recorded Atorvastatin [Lipitor] 20 mg PO DAILY #30 tablet 08/13/21 Baclofen 10 mg PO TID PRN #15 tab 06/07/22 Meloxicam [Mobic] 15 mg PO DAILY PRN #10 tablet 06/07/22 Ibuprofen [Motrin] 800 mg PO Q8H PRN 7 Days #21 tab 06/22/22 valACYclovir HCL [Valtrex] 1,000 mg PO Q8H 7 Days #21 tab 06/22/22 Allergies Allergy/AdvReac Type Severity Reaction Status Date / Time No Known Allergies Allergy Verified 06/22/22 14:00 Review of Systems ROS Statement: Those systems with pertinent positive or pertinent negative responses have been documented in the HPI. ROS Other: All systems not noted in ROS Statement are negative. Past Medical History Past Medical History: Deep Vein Thrombosis (DVT), Hypertension, Rheumatoid Arthritis (RA) Additional Past Medical History / Comment(s): carpel tunnel. covid 10 07/05/20. DVT in June 2010. No longer on anticoagulation. History of Any Multi-Drug Resistant Organisms: None Reported Past Surgical History: Section, Cholecystectomy, Heart Catheterization, Hysterectomy, Orthopedic Surgery Additional Past Surgical History / Comment(s): 7 surgeries left knee. 1 surgery on the right. No joint replacements. Thyroid removal September 2022 Additional Past Anesthesia/Blood Transfusion Reaction / Comment(s): Pt states she cannot have dramamine after surgery. Past Psychological History: No Psychological Hx Reported Smoking Status: Never smoker Past Alcohol Use History: None Reported Past Drug Use History: None Reported General Exam Limitations: no limitations General appearance: alert, in no apparent distress ENT exam: Present: normal exam, mucous membranes moist Neck exam: Present: normal inspection. Absent: tenderness, meningismus, lymphadenopathy Respiratory exam: Present: normal lung sounds bilaterally. Absent: respiratory distress, wheezes, rales, rhonchi, stridor Cardiovascular Exam: Present: regular rate, normal rhythm, normal heart sounds. Absent: systolic murmur, diastolic murmur, rubs, gallop, clicks Neurological exam: Present: alert, oriented X3, CN II-XII intact Psychiatric exam: Present: normal affect, normal mood Skin exam: Present: warm, dry, intact, normal color. Absent: rash Course Vital Signs 03/10/23 03/10/23 10:05 10:20 Temperature 98.1 F Pulse Rate 101 H Respiratory 18 18 Rate Blood Pressure 114/81 O2 Sat by Pulse 96 Oximetry Medical Decision Making - Medical Decision Making Was pt. sent in by a medical professional or institution (, PA, STAKE SETTER, urgent care, hospital, or group home...) When possible be specific @ -No Did you speak to anyone other than the patient for history (EMS, parent, family, police, friend...)? What history was obtained from this source @ -No Did you review nursing and triage notes (agree or disagree)? Why? @ -I reviewed and agree with nursing and triage notes Were old charts reviewed (outside hosp., previous admission, EMS record, old EKG, old radiological studies, urgent care reports/EKG's, group home records)? Report findings @ -No old charts were reviewed Differential Diagnosis (chest pain, altered mental status, abdominal pain women, abdominal pain men, vaginal bleeding, weakness, fever, dyspnea, syncope, headache, dizziness, GI bleed, back pain, seizure, CVA, palpatations, mental health, musculoskeletal)? @ -Strep throat, COVID-19, influenza, RSV, viral sinusitis EKG interpreted by me (3pts min.). @ -None above X-rays interpreted by me (1pt min.). @ -Chest x-ray shows borderline heart size. No acute cardiopulmonary process is seen. CT interpreted by me (1pt min.). @ -None done U/S interpreted by me (1pt. min.). @ -None done What testing was considered but not performed or refused? (CT, X-rays, U/S, labs)? Why? @ -None What meds were considered but not given or refused? Why? @ -None Did you discuss the management of the patient with other professionals (professionals i.e. , PA, STAKE SETTER, lab, RT, psych nurse, social group worker, agricultural produce washer, teacher, forward air controller/air officer, child support case officer)? Give summary @ -No Was smoking cessation discussed for >3mins.? @ -No Was critical care preformed (if so, how long)? @ -No Were there social determinants of health that impacted care today? How? (Homelessness, low income, unemployed, alcoholism, drug addiction, transportation, low edu. Level, literacy, decrease access to med. care, fdc, rehab)? @ -No Was there de-escalation of care discussed even if they declined (Discuss DNR or withdrawal of care, Hospice)? DNR status @ -No What co-morbidities impacted this encounter? (DM, HTN, Smoking, COPD, CAD, Cancer, CVA, ARF, Chemo, Hep., AIDS, mental health diagnosis, sleep apnea, morbid obesity)? @ -None Was patient admitted / discharged? Hospital course, mention meds given and route, prescriptions, significant lab abnormalities, going to OR and other pertinent info. @ -Discharge. Patient is a 52-year-old female presenting with chief complaint of cough. Upon examination patient was afebrile and lung sounds clear bilaterally. Viral swabs obtained in the ER were negative. Chest x-ray showed borderline heart size with no acute cardiopulmonary process noted. I discussed with the patient to try nasal lavage, [id number] Benadryl and to prop herself up while sleeping to help with postnasal drip. Return parameters were discussed. Patient be discharged in stable condition with follow-up to PCP. Patient expressed understanding and agreement with care plan Undiagnosed new problem with uncertain prognosis? @ -No Drug Therapy requiring intensive monitoring for toxicity (Heparin, Nitro, Insulin, Cardizem)? @ -No Were any procedures done? @ -No Diagnosis/symptom? @ -Viral sinusitis Acute, or Chronic, or Acute on Chronic? @ -Acute Uncomplicated (without systemic symptoms) or Complicated (systemic symptoms)? @ -Uncomplicated Side effects of treatment? @ -No Exacerbation, Progression, or Severe Exacerbation? @ -No Poses a threat to life or bodily function? How? (Chest pain, USA, [place], pneumonia, PE, COPD, DKA, ARF, appy, cholecystitis, CVA, Diverticulitis, Homicidal, Suici rm, threat to staff... and all critical care pts) @ -No - Lab Data Lab Results 03/10/23 Range/Units 10:54 Influenza Type A (PCR) Not Detected (Not Detectd) Influenza Type B (PCR) Not Detected (Not Detectd) RSV (PCR) Not Detected (Not Detectd) SARS-CoV-2 (PCR) Not Detected (Not Detectd) - Radiology Data Radiology results: report reviewed, image reviewed Disposition Clinical Impression: Sinusitis Disposition: HOME SELF-CARE Condition: Stable Instructions (If sedation given, give patient instructions): Upper Respiratory Infection (ED) Additional Instructions: Please return to the Emergency Department if symptoms worsen or any other concerns. Is patient prescribed a controlled substance at d/c from ED?: No Referrals: Mike Billy MD [Primary Care Provider] - 1-2 days Time of Disposition: 12:29
--- NOTE | 2023-03-10 11:21 | XR ---
EXAMINATION TYPE: XR chest 2V DATE OF EXAM: 03/10/2023 COMPARISON: 08/24/2021 HISTORY: 52-year-old female with cough TECHNIQUE: PA and lateral views FINDINGS: Heart upper limits of normal in size. Aortopulmonary vasculature within normal limits. No consolidati on or pleural effusion. IMPRESSION: Borderline heart size. Otherwise, no acute process seen.
[2023-03-10 12:40] VITALS: BP 140/82; PULSE 88; RESP 20
== END 2023-03-10 12:38 | disposition home or self-care (01) ==
LOC: EC 09:57
DX: J01.90 Acute sinusitis, unspecified (principal); I10 Essential (primary) hypertension; Z79.899 Other long term (current) drug therapy; Z79.82 Long term (current) use of aspirin; Z86.16 Personal history of COVID-19; Z20.822 Contact with and (suspected) exposure to COVID-19
CPT/HCPCS: 71046; 87636; 99283

== ENCOUNTER 2023-07-01 11:05 | Emergency (ER) | payer OTHER ==
[2023-07-01 11:27] VITALS: TEMP 98.1
--- NOTE | 2023-07-01 11:40 | ED ---
General Adult HPI - General Chief complaint: Chest Pain Stated complaint: Chest pain/SOB, Nausea/dizzy Time Seen by Provider: 07/01/23 11:19 Source: patient, RN notes reviewed Mode of arrival: ambulatory Limitations: no limitations - History of Present Illness Initial comments: 53-year-old female presents to the emergency department for evaluation of chest pressure since 930 this morning. She notes the pain as a pressure. She states that this started while she was doing laundry earlier today. It was alleviated somewhat by rest. Denies radiation of the pain. Denies nausea, vomiting, diaphoresis, fever. She has a history of coronary vasospasms and takes calcium channel blockers. She follows with Dr. Bradley in the past but has not seen him recently. - Related Data Home Medications Medication Instructions Recorded Confirmed Omeprazole 40 mg PO DAILY 02/25/20 07/01/23 Cholecalciferol [Vitamin D3 (25 50 mcg PO DAILY 08/11/21 07/01/23 Mcg = 1000 Iu)] Aspirin EC [Ecotrin Low Dose] 81 mg PO DAILY 08/24/21 07/01/23 Isosorbide Mononitrate ER [Imdur] 15 mg PO DAILY 08/24/21 07/01/23 amLODIPine [Norvasc] 5 mg PO DAILY 06/07/22 07/01/23 Acetaminophen/Diphenhydramine 2 tab PO HS 07/01/23 07/01/23 [Tylenol PM 500-25mg] Levothyroxine Sodium [Synthroid] 150 mcg PO DAILY 07/01/23 07/01/23 Previous Rx's Medication Instructions Recorded Atorvastatin [Lipitor] 20 mg PO DAILY #30 tablet 08/13/21 Allergies Allergy/AdvReac Type Severity Reaction Status Date / Time No Known Allergies Allergy Verified 07/01/23 12:06 Review of Systems ROS Statement: Those systems with pertinent positive or pertinent negative responses have been documented in the HPI. ROS Other: All systems not noted in ROS Statement are negative. Past Medical History Past Medical History: Deep Vein Thrombosis (DVT), Hypertension, Rheumatoid Art hritis (RA) Additional Past Medical History / Comment(s): carpel tunnel. covid 10 07/05/20. DVT in June 2010. No longer on anticoagulation. History of Any Multi-Drug Resistant Organisms: None Reported Past Surgical History: Section, Cholecystectomy, Heart Catheterization, Hysterectomy, Orthopedic Surgery Additional Past Surgical History / Comment(s): 7 surgeries left knee. 1 surgery on the right. No joint replacements. Thyroid removal September 2022 Additional Past Anesthesia/Blood Transfusion Reaction / Comment(s): Pt states she cannot have dramamine after surgery. Past Psychological History: No Psychological Hx Reported Smoking Status: Never smoker Past Alcohol Use History: None Reported Past Drug Use History: None Reported General Exam Limitations: no limitations General appearance: alert, in no apparent distress Head exam: Present: atraumatic, normocephalic, normal inspection Eye exam: Present: normal appearance, PERRL, EOMI. Absent: scleral icterus, conjunctival injection, periorbital swelling ENT exam: Present: normal exam, mucous membranes moist Neck exam: Present: normal inspection. Absent: tenderness, meningismus, lymphadenopathy Respiratory exam: Present: normal lung sounds bilaterally. Absent: respiratory distress, wheezes, rales, rhonchi, stridor Cardiovascular Exam: Present: regular rate, normal rhythm, normal heart sounds. Absent: systolic murmur, diastolic murmur, rubs, gallop, clicks GI/Abdominal exam: Present: soft. Absent: distended, tenderness, guarding, rebound, rigid Extremities exam: Present: normal inspection, full ROM, normal capillary refill. Absent: tenderness, pedal edema, joint swelling, calf tenderness Back exam: Present: normal inspection Neurological exam: Present: alert, oriented X3 Psychiatric exam: Present: normal affect, normal mood Skin exam: Present: warm, dry, intact, normal color. Absent: rash Course Vital Signs 07/01/23 07/01/23 07/01/23 11:07 11:30 13:00 Temperature 98.1 F Pulse Rate 95 99 81 Respiratory 22 18 18 Rate Blood Pressure 134/87 143/118 151/109 O2 Sat by Pulse 98 98 95 Oximetry 07/01/23 07/01/23 14:41 16:19 Temperature Pulse Rate 90 102 H Respiratory 18 18 Rate Blood Pressure 153/92 155/96 O2 Sat by Pulse 96 95 Oximetry Medical Decision Making - Medical Decision Making Was pt. sent in by a medical professional or institution (, PA, RADIOLOGY SUPERVISOR, urgent care, hospital, or assisted...) When possible be specific @ -No Did you speak to anyone other than the patient for history (EMS, parent, family, police, friend...)? What history was obtained from this source @ -No Did you review nursing and triage notes (agree or disagree)? Why? @ -I reviewed and agree with nursing and triage notes Were old charts reviewed (outside hosp., previous admission, EMS record, old EKG, old radiological studies, urgent care reports/EKG's, assisted records)? Report findings @ -No old charts were reviewed Differential Diagnosis (chest pain, altered mental status, abdominal pain women, abdominal pain men, vaginal bleeding, weakness, fever, dyspnea, syncope, he adache, dizziness, GI bleed, back pain, seizure, CVA, palpatations, mental health, musculoskeletal)? @ -Differential Chest Pain: Stable Angina, Unstable Angina, STEMI, NSTEMI Aortic Dissection, Pneumothorax, Musculoskeletal, Esophageal Spasm GERD, Cholecystitis, Pancreatitis, Zoster, this is not meant to be an all-inclusive list. EKG interpreted by me (3pts min.). @ -EKG at 1116 shows sinus rhythm rate 89, NC 148, QRS 88, QT/QTc 179677 X-rays interpreted by me (1pt min.). @ -Chest x-ray shows no acute process CT interpreted by me (1pt min.). @ -None done U/S interpreted by me (1pt. min.). @ -None done What testing was considered but not performed or refused? (CT, X-rays, U/S, labs)? Why? @ -None What meds were considered but not given or refused? Why? @ -None Did you discuss the management of the patient with other professionals (professionals i.e. , PA, RADIOLOGY SUPERVISOR, lab, RT, psych nurse, social sciences lecturer, independent insurance adjuster, teacher, peace officer, onsite case manager)? Give summary @ -No Was smoking cessation discussed for >3mins.? @ -No Was critical care preformed (if so, how long)? @ -No Were there social determinants of health that impacted care today? How? (Homelessness, low income, unemployed, alcoholism, drug addiction, transportation, low edu. Level, literacy, decrease access to med. care, [facility], rehab)? @ -No Was there de-escalation of care discussed even if they declined (Discuss DNR or withdrawal of care, Hospice)? DNR status @ -No What co-morbidities impacted this encounter? (DM, HTN, Smoking, COPD, CAD, Cancer, CVA, ARF, Chemo, Hep., AIDS, mental health diagnosis, sleep apnea, morbid obesity)? @ -None Was patient admitted / discharged? Hospital course, mention meds given and route, prescriptions, significant lab abnormalities, going to OR and other pertinent info. @ -Discharged. Patient presented to the emergency department for evaluation of chest pain. She states that this lasted around 2 hours. She was provided 1 L normal saline and 324 aspirin in the ED. Laboratory studies were obtained.CBC essentially unremarkable; negative D-dimer at 0.29; CMP shows mild transaminitis and bilirubin of 1.7 this is baseline for the patient. Patient has had 2 negative troponins. Patient has a heart score of 3. Symptoms completely resolved. Discussed observation versus discharge home. Patient would like to be discharged at this time. Patient is understanding and agreeable with discharge plan. Strict return precautions discussed. Patient stable at time of discharge. Case discussed with Dr. Coy. Undiagnosed new problem with uncertain prognosis? @ -No Drug Therapy requiring intensive monitoring for toxicity (Heparin, Nitro, Insulin, Cardizem)? @ -No Were any procedures done? @ -No Diagnosis/symptom? @ -Atypical chest pain Acute, or Chronic, or Acute on Chronic? @ -Acute Uncomplicated (without systemic symptoms) or Complicated (systemic symptoms)? @ -Uncomplicated Side effects of treatment? @ -No Exacerbation, Progression, or Severe Exacerbation? @ -No Poses a threat to life or bodily function? How? (Chest pain, USA, [place], pneumonia, PE, COPD, DKA, ARF, appy, cholecystitis, CVA, Diverticulitis, Homicidal, Suicidal, threat to staff... and all critical care pts) @ -No - Lab Data Result diagrams: 07/01/23 11:41 07/01/23 11:41 Lab Results 07/01/23 07/01/23 07/01/23 Range/Units 11:41 11:41 11:41 WBC 6.2 (3.8-10.6) k/uL RBC 4.65 (3.80-5.40) m/uL Hgb 15.0 (11.4-16.0) gm/dL Hct 45.0 (34.0-46.0) % MCV 96.8 (80.0-100.0) fL MCH 32.3 (25.0-35.0) pg MCHC 33.4 (31.0-37.0) g/dL RDW 12.6 (11.5-15.5) % Plt Count 290 (150-450) k/uL MPV 8.4 Neutrophils % 51 % Lymphocytes % 37 % Monocytes % 6 % Eosinophils % 3 % Basophils % 1 % Neutrophils # 3.2 (1.3-7.7) k/uL Lymphocytes # 2.3 (1.0-4.8) k/uL Monocytes # 0.4 (0-1.0) k/uL Eosinophils # 0.2 (0-0.7) k/uL Basophils # 0.1 (0-0.2) k/uL PT 9.9 L (10.0-12.5) sec INR 0.9 (<1.2) APTT 23.6 (22.0-30.0) sec D-Dimer 0.39 (<0.60) mg/L FEU Sodium 143 (137-145) mmol/L Potassium 4.2 (3.5-5.1) mmol/L Chloride 109 H (98-107) mmol/L Carbon Dioxide 23 (22-30) mmol/L Anion Gap 11 mmol/L BUN 11 (7-17) mg/dL Creatinine 0.53 (0.52-1.04) mg/dL Est GFR (CKD-EPI)AfAm >90 (>60 ml/min/1.73 sqM) Est GFR (CKD-EPI)NonAf >90 (>60 ml/min/1.73 sqM) Glucose 111 H (74-99) mg/dL Calcium 9.4 (8.4-10.2) mg/dL Magnesium 1.8 (1.6-2.3) mg/dL Total Bilirubin 1.7 H (0.2-1.3) mg/dL AST 40 H (14-36) U/L ALT 39 H (4-34) U/L Alkaline Phosphatase 119 (38-126) U/L Troponin I (0.000-0.034) ng/mL Total Protein 7.1 (6.3-8.2) g/dL Albumin 4.2 (3.5-5.0) g/dL 07/01/23 07/01/23 Range/Units 11:41 14:40 WBC (3.8-10.6) k/uL RBC (3.80-5.40) m/uL Hgb (11.4-16.0) gm/dL Hct (34.0-46.0) % MCV (80.0-100.0) fL MCH (25.0-35.0) pg MCHC (31.0-37.0) g/dL RDW (11.5-15.5) % Plt Count (150-450) k/uL MPV Neutrophils % % Lymphocytes % % Monocytes % % Eosinophils % % Basophils % % Neutrophils # (1.3-7.7) k/uL Lymphocytes # (1.0-4.8) k/uL Monocytes # (0-1.0) k/uL Eosinophils # (0-0.7) k/uL Basophils # (0-0.2) k/uL PT (10.0-12.5) sec INR (<1.2) APTT (22.0-30.0) sec D-Dimer (<0.60) mg/L FEU Sodium (137-145) mmol/L Potassium (3.5-5.1) mmol/L Chloride (98-107) mmol/L Carbon Dioxide (22-30) mmol/L Anion Gap mmol/L BUN (7-17) mg/dL Creatinine (0.52-1.04) mg/dL Est GFR (CKD-EPI)AfAm (>60 ml/min/1.73 sqM) Est GFR (CKD-EPI)NonAf (>60 ml/min/1.73 sqM) Glucose (74-99) mg/dL Calcium (8.4-10.2) mg/dL Magnesium (1.6-2.3) mg/dL Total Bilirubin (0.2-1.3) mg/dL AST (14-36) U/L ALT (4-34) U/L Alkaline Phosphatase (38-126) U/L Troponin I <0.012 <0.012 (0.000-0.034) ng/mL Total Protein (6.3-8.2) g/dL Albumin (3.5-5.0) g/dL Disposition Clinical Impression: Atypical chest pain Disposition: HOME SELF-CARE Condition: Stable Instructions (If sedation given, give patient instructions): Chest Pain (ED) Additional Instructions: Please follow up with Dr. Bradley. Return to the emergency department if pain returns or you develop new symptoms. Is patient prescribed a controlled substance at d/c from ED?: No Referrals: Mahi Crow NPC [Nurse Practitioner] - 1-2 days
[2023-07-01 11:55] LABS: Basophils # (A) 0.1 k/uL (0-0.2); Basophils % (A) 1 %; Eosinophils # (A) 0.2 k/uL (0-0.7); Eosinophils % (A) 3 %; Lymphocytes # (A) 2.3 k/uL (1.0-4.8); Lymphocytes % (A) 37 %; MCH 32.3 pg (25.0-35.0); MCHC 33.4 g/dL (31.0-37.0); MCV 96.8 fL (80.0-100.0); Mean Platelet Volume 8.4; Monocytes # (A) 0.4 k/uL (0-1.0); Monocytes % (A) 6 %; Neutrophils # (A) 3.2 k/uL (1.3-7.7); Neutrophils % (A) 51 %; Platelet Count 290 k/uL (150-450); RBC 4.65 m/uL (3.80-5.40); RDW 12.6 % (11.5-15.5); WBC 6.2 k/uL (3.8-10.6)
[2023-07-01 12:10] LABS: ALT 39 U/L (4-34); AST 40 U/L (14-36); African American GFR (CKD) >90 (>60 ml/min/1.73 sqM); Albumin 4.2 g/dL (3.5-5.0); Alkaline Phosphatase 119 U/L (38-126); Anion Gap 11 mmol/L; Blood Urea Nitrogen 11 mg/dL (7-17); Calcium 9.4 mg/dL (8.4-10.2); Carbon Dioxide 23 mmol/L (22-30); Chloride 109 mmol/L (98-107); Glucose 111 mg/dL (74-99); Magnesium 1.8 mg/dL (1.6-2.3); Non-African American GFR(CKD) >90 (>60 ml/min/1.73 sqM); Sodium 143 mmol/L (137-145); Total Bilirubin 1.7 mg/dL (0.2-1.3); Total Protein 7.1 g/dL (6.3-8.2)
[2023-07-01 12:11] LABS: INR 0.9 (<1.2); Partial Thromboplastin Time 23.6 sec (22.0-30.0); Prothrombin Time 9.9 sec (10.0-12.5)
--- NOTE | 2023-07-01 12:17 | XR ---
EXAMINATION TYPE: XR chest 2V DATE OF EXAM: 07/01/2023 COMPARISON: 03/10/2023 INDICATION: Chest pain short of breath TECHNIQUE: Frontal and lateral views of the chest are obtained. FINDINGS: The heart size is normal. The pulmonary vasculature is normal. The lungs are clear. IMPRESSION: 1. No acute pulmonary process.
[2023-07-01 12:33] LABS: Potassium 4.2 mmol/L (3.5-5.1)
[2023-07-01] MEDS: SODIUM CHLORIDE 0.9% 1,000 ML IV ONE (12:55)
[2023-07-01] MEDS: ASPIRIN 81 MG PO STA (12:56)
[2023-07-01 15:26] VITALS: RESP 18
[2023-07-01 16:33] VITALS: BP 155/96; PULSE 102
== END 2023-07-01 16:25 | disposition home or self-care (01) ==
LOC: EC 11:05
DX: R07.89 Other chest pain (principal); R74.01 Elevation of levels of liver transaminase levels; Z86.16 Personal history of COVID-19
CPT/HCPCS: 36415; 71046; 80053; 83735; 84484; 85025; 85379; 85610; 85730; 93005; 96360; 99285

== ENCOUNTER 2024-08-19 17:32 | Emergency (ER) | payer OTHER ==
[2024-08-19 17:38] VITALS: TEMP 97.7
--- NOTE | 2024-08-19 17:50 | ED ---
General Adult HPI - General Chief complaint: Extremity Injury, Lower Stated complaint: R knee injury Time Seen by Provider: 08/19/24 17:40 Source: patient, RN notes reviewed Mode of arrival: ambulatory Limitations: no limitations - History of Present Illness Initial comments: 54-year-old female presenting to the emergency department with mother for compl aints of left knee pain that occurred earlier this afternoon. Patient states that she was walking up her steps to go to use the bathroom when she heard and felt a popping sensation of her knee. She denies falling, hitting her head, or loss consciousness. Patient is having pain with full extension of the knee and with weightbearing. Patient states that 40+ years ago she had surgery of her left knee where they cleaned the back of her kneecap due to inappropriate tracking of the knee. Has not taken any medications yet alleviate symptoms. No other acute complaints at this time. - Related Data Home Medications Medication Instructions Recorded Confirmed Omeprazole 40 mg PO DAILY 02/25/20 07/01/23 Cholecalciferol [Vitamin D3 (25 50 mcg PO DAILY 08/11/21 07/01/23 Mcg = 1000 Iu)] Aspirin EC [Ecotrin Low Dose] 81 mg PO DAILY 08/24/21 07/01/23 Isosorbide Mononitrate ER [Imdur] 15 mg PO DAILY 08/24/21 07/01/23 amLODIPine [Norvasc] 5 mg PO DAILY 06/07/22 07/01/23 Acetaminophen/Diphenhydramine 2 tab PO HS 07/01/23 07/01/23 [Tylenol PM 500-25mg] Levothyroxine Sodium [Synthroid] 150 mcg PO DAILY 07/01/23 07/01/23 Previous Rx's Medication Instructions Recorded Atorvastatin [Lipitor] 20 mg PO DAILY #30 tablet 08/13/21 Allergies Allergy/AdvReac Type Severity Reaction Status Date / Time No Known Allergies Allergy Verified 08/19/24 17:39 Review of Systems ROS Statement: Those systems with pertinent positive or pertinent negative responses have been documented in the HPI. ROS Other: All systems not noted in ROS Statement are negative. Past Medical History Past Medical History: Deep Vein Thrombosis (DVT), Hypertension, Rheumatoid Arthritis (RA) Additional Past Medical History / Comment(s): carpel tunnel. covid 10 07/05/20. DVT in June 2010. No longer on anticoagulation. History of Any Multi-Drug Resistant Organisms: None Reported Past Surgical History: Section, Cholecystectomy, Heart Catheterization, Hysterectomy, Orthopedic Surgery Additional Past Surgical History / Comment(s): 7 surgeries left knee. 1 surgery on the right. No joint replacements. Thyroid removal September 2022 Additional Past Anesthesia/Blood Transfusion Reaction / Comment(s): Pt states she cannot have dramamine after surgery. Past Psychological History: No Psychological Hx Reported Smoking Status: Never smoker Past Alcohol Use History: None Reported Past Drug Use History: None Reported General Exam Limitations: no limitations General appearance: alert, in no apparent distress ENT exam: Present: normal exam, mucous membranes moist Neck exam: Present: normal inspection. Absent: tenderness, meningismus, lymphadenopathy Respiratory exam: Present: normal lung sounds bilaterally. Absent: respiratory distress, wheezes, rales, rhonchi, stridor Cardiovascular Exam: Present: regular rate, normal rhythm, normal heart sounds. Absent: systolic murmur, diastolic murmur, rubs, gallop, clicks GI/Abdominal exam: Present: soft, normal bowel sounds. Absent: distended, tenderness, guarding, rebound, rigid Right Knee exam: Present: full ROM, tenderness. Absent: swelling, deformity, crepitus, dislocation, erythema, effusion Neurovascular tendon exam: Present: no vascular compromise Gait: not tested/not observed Back exam: Present: normal inspection Course Vital Signs 08/19/24 17:36 Temperature 97.7 F Pulse Rate 79 Respiratory 18 Rate Blood Pressure 155/88 O2 Sat by Pulse 95 Oximetry Medical Decision Making - Medical Decision Making Was pt. sent in by a medical professional or institution (, PA, DRUM BARKER OPERATOR, urgent care, hospital, or fdc...) When possible be specific @ -No Did you speak to anyone other than the patient for history (EMS, parent, family, police, friend...)? What history was obtained from this source @ -No Did you review nursing and triage notes (agree or disagree)? Why? @ -I reviewed and agree with nursing and triage notes Were old charts reviewed (outside hosp., previous admission, EMS record, old EKG, old radiological studies, urgent care reports/EKG's, fdc records)? Report findings @ -No old charts were reviewed Differential Diagnosis (chest pain, altered mental status, abdominal pain women, abdominal pain men, vaginal bleeding, weakness, fever, dyspnea, syncope, headache, dizziness, GI bleed, back pain, seizure, CVA, palpatations, mental health, musculoskeletal)? @ -Differential Musculoskeletal Muscular strain, contusion, ligament sprain, fracture, arthritis, septic arthritis, bursitis, cellulitis, muscle spasm, nerve compression, DVT, arterial occlusion, herpes zoster, electrolyte abnormality, tumor.... This is not meant to be in all inclusive list EKG interpreted by me (3pts min.). @ -None X-rays interpreted by me (1pt min.). @ -X-ray imaging of the right knee no acute osseous abnormality, osteoarthritis changes. CT interpreted by me (1pt min.). @ -None done U/S interpreted by me (1pt. min.). @ -None done What testing was considered but not performed or refused? (CT, X-rays, U/S, labs)? Why? @ -None What meds were considered but not given or refused? Why? @ -None Did you discuss the management of the patient with other professionals (professionals i.e. , PA, DRUM BARKER OPERATOR, lab, RT, psych nurse, child welfare social worker, data miner, teacher, electorate officer, case operator)? Give summary @ -No Was smoking cessation discussed for >3mins.? @ -No Was critical care preformed (if so, how long)? @ -No Were there social determinants of health that impacted care today? How? (Homelessness, low income, unemployed, alcoholism, drug addiction, transportation, low edu. Level, literacy, decrease access to med. care, skilled nursing, rehab)? @ -No Was there de-escalation of care discussed even if they declined (Discuss DNR or withdrawal of care, Hospice)? DNR status @ -No What co-morbidities impacted this encounter? (DM, HTN, Smoking, COPD, CAD, Cancer, CVA, ARF, Chemo, Hep., AIDS, mental health diagnosis, sleep apnea, morbid obesity)? @ -None Was patient admitted / discharged? Hospital course, mention meds given and route, prescriptions, significant lab abnormalities, going to OR and other pertinent info. @ -Discharge. 54-year-old female presents emergency room with complaints of r ight knee pain. There is no signs of deformity or crepitus. Range of motion is intact passively however this elicits pain for the patient. She is provided with Motrin. X-ray imaging is unremarkable. Patient is provided with knee immobilizer. States that she has crutches at home. Provided with outpatient referral to vendor management specialist. Recommend that she continue to rest, ice, elevate use Tylenol and Motrin as needed to using crutches to maintain nonweightbearing status. Case discussed with Dr. Kamara Undiagnosed new problem with uncertain prognosis? @ -No Drug Therapy requiring intensive monitoring for toxicity (Heparin, Nitro, Insulin, Cardizem)? @ -No Were any procedures done? @ -No Diagnosis/symptom? @ -knee sprain Acute, or Chronic, or Acute on Chronic? @ -acute Uncomplicated (without systemic symptoms) or Complicated (systemic symptoms)? @ -uncomplicated Side effects of treatment? @ -No Exacerbation, Progression, or Severe Exacerbation? @ -No Poses a threat to life or bodily function? How? (Chest pain, USA, [place], pneumonia, PE, COPD, DKA, ARF, appy, cholecystitis, CVA, Diverticulitis, Homicidal, Suicidal, threat to staff... and all critical care pts) @ -No Disposition Clinical Impression: Knee sprain Disposition: HOME SELF-CARE Condition: Stable Instructions (If sedation given, give patient instructions): Knee Sprain (ED) Additional Instructions: Please return to the Emergency Department if symptoms worsen or any other concerns. Is patient prescribed a controlled substance at d/c from ED?: No Referrals: Mike Billy MD [Primary Care Provider] - 1-2 days Riri Rockwell [Doctor of Osteopathic Medicine] - 1-2 days Time of Disposition: 18:32
[2024-08-19] MEDS: IBUPROFEN 600 MG TAB PO STA (17:53)
--- NOTE | 2024-08-19 18:30 | XR ---
EXAMINATION TYPE: XR knee complete RT DATE OF EXAM: 08/19/2024 6:01 PM COMPARISON: 07/21/2016. CLINICAL INDICATION: Female, 54 years old with history of 'popping', pain; PHH, pain TECHNIQUE: XR knee complete RT 3 views submitted. FINDINGS: No evidence of any acute osseous pathology or soft tissue swelling. Tricompartmental oste ophyte formation involving the femoral condyles, tibial plateau and patella. Moderate patellofemoral joint space narrowing. A fabella is present. IMPRESSION: 1. No acute osseous pathology. 2. Moderate tricompartmental osteoarthritic changes. [facility], , 08/19/2024 6:28 PM
[2024-08-19 19:14] VITALS: BP 159/86; PULSE 86; RESP 20
== END 2024-08-19 19:24 | disposition home or self-care (01) ==
LOC: EC 17:32
DX: S83.92XA Sprain of unspecified site of left knee, initial encounter (principal); W10.8XXA Fall (on) (from) other stairs and steps, initial encounter; Y93.01 Activity, walking, marching and hiking
CPT/HCPCS: 99283